=== PATIENT | male | born 1940 | race Caucasian/White ===

== ENCOUNTER 2017-04-08 08:31 | Outpatient (CLI) | payer MEDICARE ==
[~2017-04-08] VITALS: Ht 177.8 cm; Wt 89.5 kg
--- NOTE | ~2017-04-08 | OP ---
PATIENT NAME: KIRILL ANDRESN MEDICAL RECORD: [id number] :44 LOCATION:D.CAT ADMISSION DATE: SURGEON: THERESA CHURCH MD DATE OF OPERATION: 04/08/2017 DATE OF SERVICE: 04/08/2017 PROCEDURES: 1. PTCA stent vein graft to LAD diagonal. 2. Left heart catheterization. 3. Selective coronary angiography. 4. Vein graft angiography. 5. ACUNA angiography. 6. Left ventriculogram. INDICATION: Angina and coronary artery disease. PROCEDURE IN DETAIL: After informed consent was obtained and after detailed explanation of risks, benefits as well as alternative therapies, the patient elected to proceed with angiogram and angioplasty. The right femoral area was prepped and draped in normal sterile fashion. The right femoral artery was cannulated via modified Seldinger technique with placement of 6-Sudanese sheath. All catheters exchanged through this sheath. FINDINGS: Left ventriculogram was performed in standard 30-degree CELIS view, reveals global hypokinesis throughout all segments. Overall ejection fraction estimated 40%. SELECTIVE CORONARY ANGIOGRAPHY: 1. The left main is closed. 2. Right coronary artery is closed. 3. ACUNA to the LAD is widely patent. Distal LAD is widely patent. 4. Vein graft to the LAD diagonal is patent; however, has 99% stenosis proximally. 5. Vein graft in a skipped fashion OM1 and OM2 from the circumflex is widely patent with no significant disease. 6. Vein graft to the right coronary is patent; however, there are multiple areas of 80% stenoses throughout the mid shaft. PTCA STENT OF THE VEIN GRAFT TO THE LAD DIAGONAL: The stent used was a 3.0 x 15 mm Dustin. Result was 0% residual stenosis. OVERALL IMPRESSION: Successful percutaneous transluminal coronary angioplasty stent of the vein graft to the left anterior descending diagonal going from 99% initial stenosis to 0% residual stenosis. TRANSINT:[id number] Voice Confirmation ID: [id number] DOCUMENT ID: [id number] OPERATIVE REPORT [id number] KIRILL ANDRES JEFFREY MD at 1323 CC: [id number] DICTATION DATE: 04/08/17 1034 HORTICULTURAL SPECIALTY [place]OWER FIELD: 04/08/17 1117 DEP CLI 04/08/17 [place] [id number]
--- NOTE | ~2017-04-08 | HP ---
PATIENT: KIRILL ANDRES MEDICAL RECORD: [id number] ACCOUNT: [id number] LOCATION:BEATRIS : 44 ADMISSION DATE: 04/08/17 HISTORY AND PHYSICAL EXAMINATION DIAGNOSES: 1. Angina. 2. Coronary artery disease. 3. Previous percutaneous transluminal coronary angioplasty stent. 4. Diabetes. 5. Hypertension. 6. Atrial fibrillation. HISTORY OF PRESENT ILLNESS: This is a gentleman who presents with anginal symptomatology, has a past history of coronary artery disease, past history of previous cardiac stenting. Nuclear stress test revealed reversible ischemia, he is now sent for cardiac catheterization. REVIEW OF SYSTEMS: The patient reports easy bruising, but reports no swollen glands. The patient reports no fever, no night sweats, no significant weight gain, no significant weight loss. No significant exercise tolerance. The patient reports no dry eyes, no irritation, no vision change. Patient reports no difficulty hearing and no ear pain. Patient reports no frequent nose bleeds or nose and sinus problems. Patient reports on arm pain on exertion. No shortness of breath while lying down. No history of heart murmur. Patient reports no cough, no wheezing or coughing up blood. Patient reports no abdominal pain, no vomiting. Normal appetite. No diarrhea and not vomiting blood. No nausea and no constipation. Patient reports no incontinence. No difficulty urinating. No hematuria. No increased frequency. Patient reports no muscle aches. No weakness, no arthralgias, no back pain. No swelling of the extremities. Patient reports no abnormal mole, no jaundice, no rashes. Reports no loss of consciousness. No weakness and no numbness. No seizures, dizziness, or headaches. The patient reports no depression, no sleep disturbance, feeling safe in a relationship and no alcohol abuse. Patient reports on fatigue. Reports no runny nose or sinus pressure. No itching, no hives, and no frequent sneezing. PHYSICAL EXAMINATION: GENERAL APPEARANCE: Well-nourished, well-developed, appears stated age. Level of distress, comfortable. PSYCHIATRIC: Mental status, alert, normal affect. Orientation, oriented to time, place and person. EYES: Lids and conjunctiva, noninjected. No discharge, no pallor. ENT: Lips, teeth, gums, normal dentition. Oropharynx, no cyanosis, no pallor. NECK: Carotid arteries, bilateral normal upstroke, no bruits, no thrills. JUGULAR VEINS: No jugular venous pressure or distention. CERVICAL LYMPH NODES: Nontender, nonenlarged. THYROID: Not enlarged. Nontender. No nodules. LUNGS: Respiratory effort, unlabored. CHEST: Normal curvature. No thoracic deformity. No chest wall tenderness. Percussion, resonant. Auscultation, clear. No wheezes, no rales, no rhonchi. CARDIOVASCULAR: Precordial exam, nondisplaced. No heaves or pericardial thrills. Rate and rhythm, regular. Heart sounds, normal S1, normal S2. No S3, no gallop, no rub. Systolic murmur, not heard. Diastolic murmur, not heard. EXTREMITIES: No cyanosis, no edema. Peripheral pulses, full and equal in all HISTORY AND PHYSICAL [id number] KIRILL ANDRES extremities, except as noted. No bruits appreciated. ABDOMEN: Soft, nondistended. Normal aorta. No bruit. Nontender. No masses. Liver, nontender, no hepatomegaly. Spleen, nontender, no splenomegaly. MUSCULOSKELETAL: No joint tenderness. No joint swelling. No erythema. NEUROLOGICAL: Normal gait, normal strength, normal tone. SKIN: Warm and dry. OVERALL IMPRESSION: Anginal symptomatology, abnormal nuclear stress test in a patient with a past history of coronary artery disease, most likely has recurrent hemodynamically significant coronary artery disease. We will proceed with coronary angiography. Further care depends upon the findings of the angiography. TRANSINT:[id number] Voice Confirmation ID: [id number] DOCUMENT ID: [id number] THERESA CHURCH MD at 1323 CC: [id number] DICTATION DATE: 04/08/17 0934 SECRETARY OF STATE: 04/08/17 1002 DEP CLI 04/08/[address] [address]
--- NOTE | ~2017-04-08 | HEMODYNAMI ---
PATIENT:KIRILL ANDRES ORIANA MEDICAL RECORD: [id number] : 44 LOCATION:DMY ADMISSION DATE: 04/08/17 Generatedon:04/08/201710:37 Patient name: KIRILL ANDRES Patient #: [id number] SSN: DO B: 1940 Date of study: 04/08/2017 Page: Of Hemodynamic Procedure Report Patient Data Patient Demographics Procedure consent was obtained First Name: KIRILL Gender: Male Last Name: DMITRY : 1940 [facility] Initial: ORIANA Age: 76 year(s) Patient #: [id number] Race: Unknown Additional ID: [id number] Contact details Address: [address] [place] [address] State: [place] City: [place] Zip code: [address] Past Medical History Allergies Allergen Reaction Date Comments Reported Other allergy 04/04/2014 juvencio Other allergy 04/08/2017 Thomas Aguirre Admission Admission Data Admission Date: 04/08/2017 Admission Time: 8:31 Lab Results Lab Result Date: 04/08/2017 Lab Result Time: 0:00 Biochemistry Name Units Result Min Max BUN mg/dl 31 --(----)-* 7 18 Creatinine mg/dl 1.5 --(----)-* 0.6 1.3 CBC Name Units Result Min Max Hemoglobin g/dl 13.8 --(*---)-- 13.5 17.5 Procedure Procedure Types Cath Procedure Diagnostic Procedure LHC LHC w/Coronaries w/Grafts PCI Procedure AMI/SVG/AMMUNITION STORAGE SUPERINTENDENT PTCA or Stent SVG-BMS/AMPARO Initial Miscellaneous Procedures Moderate Sedation up to 30 minutes Procedure Description Procedure Date Procedure Date: 04/08/2017 Procedure Start Time: 10:12 Procedure End Time: 10:32 Procedure Staff Name Function Maria C Bridges RT Monitor Westley Erazo MD Performing Physician Toyin Pitts RT Scrub Nahed Guerrero RN Nurse Procedure Data Cath Procedure Fluoroscopy Diagnostic fluoroscopy Total fluoroscopy Time: 4.5 time: 4.5 min min Diagnostic fluoroscopy Total fluoroscopy dose: 983 dose: 983 mGy mGy Contrast Material Contrast Material Type Amount (ml) Isovue 300 120 Entry Location Entry Primary Successful Side Size Upsize Upsize Entry Closure Succes sful Closure Location (Fr) 1 (Fr) 2 (Fr) Remarks Device Remarks Femoral Right 5 Fr 6 Fr Exoseal artery Short Estimated blood loss: 5 ml Diagnostic catheters Device Type Used For End Catheter Placement MULTIPACK Pigtail 5 Fr LV Angiography catheter MULTIPACK JL 4.0 5Fr Left Coronary catheter Angiography MULTIPACK 3DRC 5Fr Multi-vessel catheter Angiography DIAGNOSTIC AR 2 MOD 5 Fr Multi-vessel catheter ([id number]) Angiography Procedure Complications No complications Procedure Medications Medication Administration Route Dosage 0.9% NaCl I.V. 100 ml/hr Oxygen NC 2 l/min Lidocaine 2% added to field 20 Heparin Flush Bag added to field 2 bags (1000units/500ml NS) Fentanyl I.V. 50 mcg Versed I.V. 1 mg Versed I.V. 0.5 mg Fentanyl I.V. 25 mcg Heparin Bolus I.V. 4000 units Integrilin (Bolus I.V. 7.9 ml 2mg/ml) Plavix P.O. 600 mg Hemodynamics Rest HGB: 13.8 (g/dl) Heart Rate: 69 (bpm) Snapshots Pre Cath Intra NCS Post Cath Vital Signs Time Heart Resp SPO2 NIBP (mmHg) Rhythm Pain Sedation Rate (ipm) (%) Status Level (bpm) 9:55:53 70 14 98 147/83(132) NSR 0 (11) 10(A) , No pain 10:00:11 75 14 98 149/87(124) NSR 0 (11) 10(A) , No pain 10:04:29 80 21 96 143/83(119) NSR 0 (11) 10(A) , No pain 10:08:46 80 17 95 138/86(113) NSR 0 (11) 10(A) , No pain 10:13:01 83 19 96 149/81(121) NSR 0 (11) 9(A) , No pain 10:19:14 75 16 95 159/97(131) NSR 0 (11) 9(A) , No pain 10:23:32 80 16 98 157/82(116) NSR 0 (11) 9(A) , No pain 10:27:46 81 21 98 140/90(114) NSR 0 (11) 9(A) , No pain 10:32:05 79 15 99 155/77(133) NSR 0 (11) 10(A) , No pain Medications Time Medication Route Dose Verified Delivered Reason Notes Effectiveness by by 9:54:52 0.9% NaCl I.V. 100 Westleyrubio Corleyy used for ml/hr Kacey Guerrero RN procedure 9:55:03 Oxygen NC 2 Westley Nahed Per physician l/min Kacey Guerrero RN 9:55:15 Lidocaine 2% added 20ml Westley Westley for local to vial Kacey Erazo MD anesthetic field 9:55:22 Heparin Flush added 2 Westley Westley used for Bag to bags Kacey Erazo MD procedure (1000units/500ml field NS) 10:07:11 Fentanyl I.V. 50 Westley Dockery for sedation mcg Kacey Guerrero RN 10:07:18 Versed I.V. 1 mg Westley Dockery for sedation Kacey Guerrero RN 10:09:17 Versed I.V. 0.5 Westley Bernardfany for sedation mg Kacey Guerrero RN 10:09:25 Fentanyl I.V. 25 Westley Bernardfany for sedation mcg Kacey Guerrero RN 10:21:33 Heparin Bolus I.V. 4000 Westley Dockery for verifi ed units Kacey Guerrero RN anticoagulation by 10:22:49 Integrilin I.V. 7.9 Westley Dockery for verifi ed (Bolus 2mg/ml) ml Kacey Guerrero RN antiplatelet by therapy wasted 2.1Ml 10:23:21 Plavix P.O. 600 Westley Dockery for mg Kacey Guerrero RN antiplatelet therapy Procedure Log Time Note 9:35:24 Maria C Bridges RT(R) sent for patient. Start room use. 9:47:09 Diagnostic Cath Status : Elective 9:47:32 Time tracking: Regular hours 9:47:35 Plan of Care:Hemodynamics will remain stable., Cardiac rhythm will remain stable., Comfort level will be maintained., Respiratory function will remain adequate., Patient/ family verbilizes understanding of procedure., Procedure tolerated without complication., Recovers from procedure without complications.. 9:47:39 Patient received from Pre/Post Procedure Room to CCL 2 Alert and oriented. Tansferred to table in Supine position. 9:47:40 Warm blankets applied, and christine hugger turned on for patient comfort. 9:47:41 Correct patient and procedure confirmed by team. 9:47:42 Signed procedure consent form obtained from patient. 9:47:44 ECG and BP/O2 sat monitors applied to patient. 9:54:37 Vital chart was started 9:54:52 0.9% NaCl 100 ml/hr I.V. was administered by Nahed Guerrero RN; used for procedure; 9:55:03 Oxygen 2 l/min NC was administered by Nahed Guerrero RN; Per physician; 9:55:15 Lidocaine 2% 20ml vial added to field was administered by Westley Erazo MD; for local anesthetic; 9:55:22 Heparin Flush Bag (1000units/500ml NS) 2 bags added to field was administered by Westley Erazo MD; used for procedure; 9:58:10 Baseline sample Acquired. 9:58:46 Rhythm: atrial fibrillation 9:58:48 Full Disclosure recording started 9:58:55 H&P Date Dictated: 04/08/2017 H&P Addendum completed by physician on day of procedure. (MUST COMPLETE FOR ALL OUTPATIENTS), New H&P dictated by physician.. 9:58:56 Pre-op teaching completed and patient verbalized understanding. 9:58:56 Pre-procedure instructions explained to patient. 9:58:58 Family in waiting room. 9:58:59 Patient NPO since Midnight. 9:59:54 Patient allergic to Other allergyJuvencio, Victoza 9:59:56 Is the patient allergic to Iodine/contrast media? No. 9:59:58 Was the patient premedicated? No 10:00:07 Is patient on blood thinner?Yes 10:00:44 Patients last dose of Xarelto was 04/05/17 10:00:48 Patient diabetic? Yes. 10:00:49 If diabetic: On Metformin? Yes 10:01:06 If on Metformin: Last Dose? 04/05/2017 10:01:09 Previous problem with sedation/anesthesia? No ? 10:01:11 Snore? Yes 10:01:12 Sleep apnea? No 10:01:13 Deviated septum? No 10:01:14 Opens mouth fully? Yes 10:01:15 Sticks out tongue? Yes 10:01:16 Airway obstruction? No ? 10:01:19 Dentures? No ? 10:01:22 Pre procedure: right dorsailis pedis pulse 1+ Palpable, but thready & weak; easily obliterated 10:01:24 Pre procedure: left dorsailis pedis pulse 1+ Palpable, but thready & weak; easily obliterated 10:01:26 Patient pain scale 0/10 ?. 10:01:43 IV patent on arrival in left forearm with 0.9% NaCl at [facility]. 10:03:02 Lab Result : Hemoglobin 13.8 g/dl 10:03:02 Lab Result : Creatinine 1.5 mg/dl 10:03:02 Lab Result : BUN 31 mg/dl 10:03:06 Lab results completed and on chart. 10:03:09 Right groin area was prepped with chlora-prep and draped in sterile fashion 10:03:11 Sharps counted by scrub and verified by R.N. 10:03:11 Alarms reviewed by R. N. 10:03:13 --------ALL STOP TIME OUT------ 10:03:13 Physician arrived 10:03:14 Final Timeout: patient, procedure, and site verified with staff and physician. All members of the team are in agreement. 10:03:16 Right groin site verified by team. 10:03:21 Physical assessment completed. ASA score P 2 - A patient with mild systemic disease as per Westley Erazo MD. 10:03:25 Sedation plan: IV Moderate Sedation Medication:Versed, Fentanyl 10:03:30 Use device set Femoral Dx 10:03:31 ACIST Syringe (81033) opened to sterile field. 10:03:32 Medline Cath Pack ([id number]) opened to sterile field. 10:03:32 Bag Decanter (2002) opened to sterile field. 10:03:33 SHEATH 5FR [place] (RLQ891) opened to sterile field. 10:03:34 DIAGNOSTIC WIRE .035 260cm J wire (417580) opened to sterile field. 10:03:35 ACIST Hand Control (43340) opened to sterile field. 10:03:37 ACIST Manifold (32114) opened to sterile field. 10:03:38 DIAGNOSTIC Multipack 5Fr catheter set (VN3824) opened to sterile field. 10:03:39 Tegaderm 4 x 4 (1626W) opened to sterile field. 10:06:06 Zero performed for pressure channel P1 10:06:12 Zero performed for pressure channel P1 10:06:19 Zero performed for pressure channel P1 10:06:26 Zero performed for pressure channel P1 10:07:11 Fentanyl 50 mcg I.V. was administered by Nahed Guerrero RN; for sedation; 10:07:18 Versed 1 mg I.V. was administered by Nahed Guerrero RN; for sedation; 10:09:17 Versed 0.5 mg I.V. was administered by Nahed Guerrero RN; for sedation; 10:09:25 Fentanyl 25 mcg I.V. was administered by Nahed Guerrero RN; for sedation; 10:12:14 Procedure started. 10:12:34 Local anesthetic to right femoral artery with Lidocaine 2% by Westley Erazo MD.INITIAL ACCESS ONLY 10:12:42 A 5 Fr sheath was inserted into the Right Femoral artery 10:12:49 A MULTIPACK Pigtail 5 Fr catheter was advanced over the wire and used for LV Angiography. 10:14:38 LV hemodynamics recorded. 10:14:39 LV gram done using CELIS 10:14:42 Injector settings: Ml/sec: 5, Volume: 15, 10:14:48 EF : 40 % 10:14:51 Catheter removed. 10:14:56 A MULTIPACK JL 4.0 5Fr catheter was advanced over the wire and used for Left Coronary Angiography. 10:15:19 LCA angiography performed. 10:15:21 Injector settings: Ml/sec: 3, Volume: 6, 10:15:58 Catheter removed. 10:16:22 A MULTIPACK 3DRC 5Fr catheter was advanced over the wire and used for Multi-vessel Angiography. 10:16:53 ACUNA angiography performed. 10:18:03 Injector settings: Ml/sec: 3, Volume: 6, 10:18:05 Catheter removed. 10:18:18 A DIAGNOSTIC AR 2 MOD 5 Fr catheter ([id number]) was advanced over the wire and used for Multi-vessel Angiography. 10:18:48 RCA angiography performed. 10:20:00 SVG to Circ angiography performed. 10:20:14 SVG to Diag angiography performed. 10:20:21 SVG to RCA angiography performed. 10:20:34 Catheter removed. 10:20:35 Proceeding to intervention. 10:21:17 INFLATOR Merit BasixCompak (WG7406) opened to sterile field. 10:21:18 SHEATH 6FR [place] (KGW776) opened to sterile field. 10:21:33 Heparin Bolus 4000 units I.V. was administered by Nahed Guerrero RN; for anticoagulation; verified by 10:21:42 GUIDE 6FR AR 2.0 SH catheter ([id number]) opened to sterile field. 10:22:49 Integrilin (Bolus 2mg/ml) 7.9 ml I.V. was administered by Nahed Guerrero RN; for antiplatelet therapy; verified by wasted 2.1Ml 10:23:21 Plavix 600 mg P.O. was administered by Nahed Guerrero RN; for antiplatelet therapy; 10::56 Sheath upsized to a 6 Fr Short. 10:24:01 6 Fr ar 2 sh guide catheter was inserted over the wire 10:24:14 whisper wire advanced. 10:25:01 WHISPER 190cm wire ([id number]) opened to sterile field. 10:25:25 Wire advanced across lesion. 10:26:03 Inflation number: 1 A EUPHORA 3.0 x 20 Balloon ([id number]) was prepped and advanced across the Aorta Left -> 1st Diag, then inflated to 13 LUCERO for 0:10 (min:sec). 10:26:16 Inflation number: 2 The EUPHORA 3.0 x 20 Balloon ([id number]) was reinflated across the Aorta Left -> 1st Diag, to 13 LUCERO for 0:10 (min:sec). 10:26:31 Balloon removed over the wire. 10:28:28 Inflation Number: 3 A JOHNIE RX 3.0 x 15 stent ([id number]) was prepped and advanced across the Aorta Left -> 1st Diag. The stent was deployed at 21 LUCERO for 0:10 (min:sec). 10:28:47 Stent catheter was removed intact over wire. 10::48 Guide catheter removed. 10:28:48 Wire removed. 10:29:28 EXOSEAL 6Fr (EX600) opened to sterile field. 10:29:39 Sheath removed intact; hemostasis achieved with Exoseal to the Right Femoral artery. 10::41 Procedure ended.(Physican Out) ::41 Fluoroscopy time 04.50 minutes. 10:30:46 Fluoroscopy dose: 983 mGy 10:30:46 Flurop Dose total: 983 10:30:50 Contrast amount:Isovue 300 120ml. 10:30:51 Sharps counted by scrub and verified by R.N. 10:30:53 Insertion/operative site no bleeding no hematoma. 10:30:56 Post-op/insertion site Right Femoral artery dressed using a 4 x 4 and Tegaderm. 10:30:58 Post right femoral artery:stable 10:31:00 Post Procedure Pulses reassessed and unchanged 10:31:16 Post procedure rhythm: unchanged. 10:31:18 Estimated blood loss: 5 ml 10:31:21 Patient needs reinforcement of post procedure teaching. 10:31:21 Post procedure instruction explained to patient.Patient verbalizes understanding. 10::46 Procedure and supply charges have been captured, reviewed, submitted and are correct. 10:31:46 Procedure type changed to Cath procedure, Diagnostic procedure, LHC, LHC w/Coronaries w/Grafts, PCI procedure, AMI/SVG/AMMUNITION STORAGE SUPERINTENDENT PTCA or Stent, SVG-BMS/AMPARO Initial, Miscellaneous Procedures, Moderate Sedation up to 30 minutes 10:31:50 Procedure Complication : No complications 10:31:52 Vital chart was stopped 10:31:54 See physician's report for complete and final results. 10:32:14 Report given to Pre/Post Procedure Room. 10:32:16 Patient transfered to Pre/Post Procedure Room with Stretcher. 10:32:18 Full Disclosure recording stopped 10:32:18 Procedure ended. 10:32:26 ACC-PCI Only Patient was given prescriptions, or instructed by Westley Erazo MD to start/continue the following medications upon discharge: Plavix 10:32:28 End room use (Document Last) Intervention Summary Intervention Notes Time ActionType Lesion and Equipment Used Action# Pressure Duration Attributes 10:26:03 Inflate Aorta Left EUPHORA 3.0 x 1 13 00:10 balloon -> 1st Diag 20 Balloon ([id number]) 10:26:16 Reinflate Aorta Left EUPHORA 3.0 x 2 13 00:10 balloon -> 1st Diag 20 Balloon ([id number]) 10:28:28 Place stent Aorta Left JOHNIE RX 3.0 x 3 21 00:10 -> 1st Diag 15 stent ([id number]) Device Usage Item Name Manufacture Quantity Catalog Hospital Part [facility] Lot# / Number Charge Number Stock Stock Serial# Code ACIST Syringe Acist 1 18411 006836 604573 [id number] 20 (54169) Medical Systems Inc Bag Decanter Microtek 1 2001S 429227 10124 341382 5 () Medical Inc. Medline Cath Cardinal 1 [id number] 924570 85243 820993 5 Pack Health ([id number]) SHEATH 5FR Terumo 1 MFS736 539071 767654 136762 40 [place] (YJM844) DIAGNOSTIC [facility] 1 670755 311504 882234 864541 30 WIRE .035 260cm J wire (901233) ACIST Hand Acist 1 69865 201385 972840 003922 5 Control Medical (51877) Systems Inc ACIST Manifold Acist 1 76584 438571 557106 931817 5 (56658) Medical Systems Inc DIAGNOSTIC Cardinal 1 PL5250 295204 62336 146216 30 Multipack 5Fr Health catheter set (NF4229) Tegaderm 4 x 4 3M 1 1626W 433647 949799 428104 5 (1626W) MULTIPACK Cardinal 1 979044 5 Pigtail 5 Fr Health catheter MULTIPACK JL Cardinal 1 107699 5 4.0 5Fr Health catheter MULTIPACK 3DRC Cardinal 1 488446 5 5Fr catheter Health DIAGNOSTIC AR Cardinal 1 [id number] 704207 149661 905654 20 2 MOD 5 Fr Health catheter ([id number]) INFLATOR Merit Merit 1 UO8422 779844 219715 908498 15 Lancope ([id number]) SHEATH 6FR Terumo 1 CRM147 942903 807554 650026 40 [place] (RTD214) GUIDE 6FR AR Medtronic 1 [id number] 824895 47296 099911 1 2.0 SH catheter ([id number]) WHISPER 190cm Mitchell 1 [id number] 073488 488684 793282 5 wire Vascular ([id number]) EUPHORA 3.0 x Medtronic 1 [id number] 930204 538387 455894 5 [id number] 20 Balloon ([id number]) JOHNIE RX 3.0 x Medtronic 1 [id number] 969962 1184665 205768 5 [id number] 15 stent ([id number]) EXOSEAL 6Fr Cardinal 1 EX600 315959 383051 032282 10 (EX600) Health Signature Audit [place] Stage Time Signature Unsigned Intra-Procedure 04/08/2017 Maria C Bridges 10:36:59 AM RT(R) Signatures Monitor : Maria C Bridges RT Signature : Date : Time : [place] [address] [place] [address]
[~2017-04-08 08:31] MED LIST: BAYER CHEWABLE81 MG PO; BYSTOLIC10 MG PO; CINNAMON500 MG PO; ELIQUIS5 MG PO; FERROUS SULFAT140 MG PO; GLUCOPHAGE1000 MG PO; LEVEMIR100 U/M1 SC; LIPITOR80 MG PO; PLAVIX75 MG PO; PRILOSEC20 MG PO; SORINE80 MG PO; TRIBENZOR 40-11 EAC1 PO; VICTOZA0.6 MG/0.1 SQ
[2017-04-08] MEDS ORDERED: XARELTO20 MG PO (08:51)
[2017-04-08] MEDS ORDERED: INVOKANA300 MG PO (08:52)
[2017-04-08] MEDS ORDERED: ALEVE220 MG PO (08:53)
[2017-04-08] MEDS ORDERED: NORVASC5 MG PO (08:54)
[2017-04-08] MEDS ORDERED: BYDUREON P2 MG/0.65 SC (08:55)
[2017-04-08 08:58] VITALS: BP 172/97; Ht 177.8 cm; Wt 89.5 kg
[2017-04-08 09:13] LABS: BASOPHILS 0.4 % (0-2); EOSINOPHILS 4.1 % (0-7); HEMATOCRIT 41.9 % (42.0-54.0); HEMOGLOBIN 13.8 g/dL (13.5-17.5); IMMATURE GRANULOCYTES 0.2 % (0-5); LYMPHOCYTES 16.8 % (15-50); MCH 31.5 pg (26.0-34.0); MCHC 32.9 g/dL (31.0-37.0); MCV 95.7 fL (80.0-100.0); MEAN PLATELET VOLUME 9.4 fL (7.4-10.4); MONOCYTES 8.2 % (2-11); NEUTROPHILS 70.3 % (40-80); PLATELET COUNT 225 10x3/uL (130-400); RBC 4.38 10x6/uL (4.20-6.10); RDW 15.5 % (11.5-14.5); WBC 8.5 10x3/uL (4.8-10.8)
[2017-04-08 09:32] LABS: ANION GAP 15.9 mmol/L (8-16); CALCIUM 9.3 mg/dL (8.5-10.1); CARBON DIOXIDE 23.2 mmol/L (21.0-32.0); CREATININE - SERUM 1.5 mg/dL (0.6-1.3); POTASSIUM - SERUM 4.1 mmol/L (3.5-5.1)
[2017-04-08] MEDS ORDERED: PLAVIX75 MG PO (10:46)
== END 2017-04-08 14:45 | disposition home or self-care (01) ==
LOC: D.CATH 08:31
PROVIDERS: Internal Medicine Interventional Cardiology
DX: I25.119 Atherosclerotic heart disease of native coronary artery with unspecified angina pectoris (principal); R06.09 Other forms of dyspnea; I49.5 Sick sinus syndrome; Z95.0 Presence of cardiac pacemaker; I48.91 Unspecified atrial fibrillation; Z01.812 Encounter for preprocedural laboratory examination
CPT/HCPCS: 93459; C9604

== ENCOUNTER 2017-04-11 08:28 | Outpatient (CLI) | payer MEDICARE ==
[~2017-04-11] VITALS: Ht 177.8 cm; Wt 89.5 kg
--- NOTE | ~2017-04-11 | HEMODYNAMI ---
PATIENT:KIRILL ANDRES ORIANA MEDICAL RECORD: [id number] : 44 LOCATION:[facility] ADMISSION DATE: 04/11/17 Generatedon:04/11/201711:08 Patient name: KIRILL ANDRES Patient #: [id number] SSN: DO B: 1940 Date of study: 04/11/2017 Page: Of Hemodynamic Procedure Report Patient Data Patient Demographics Procedure consent was obtained First Name: KIRILL Gender: Male Last Name: DMITRY : 1940 [facility] Initial: ORIANA Age: 76 year(s) Patient #: [id number] Race: Unknown Additional ID: [id number] Contact details [address]: [address] [place] [address] State: [place] City: [place] Zip code: [address] Past Medical History Allergies Allergen Reaction Date Comments Reported Other allergy 04/04/2014 juvencio Other allergy 04/08/2017 Thomas Aguirre Other allergy 04/11/2017 juvencio Admission Admission Data Admission Date: 04/11/2017 Admission Time: 8:28 Lab Results Lab Result Date: 04/11/2017 Lab Result Time: 0:00 Biochemistry Name Units Result Min Max BUN mg/dl 32 --(----)-* 7 18 Creatinine mg/dl 1.3 --(---*)-- 0.6 1.3 CBC Name Units Result Min Max Hemoglobin g/dl 14 --(*---)-- 13.5 17.5 Procedure Procedure Types Cath Procedure PCI Procedure AMI/SVG/BALANCE WHEEL SCREW HOLE DRILLER PTCA or Stent SVG-BMS/AMPARO Initial Miscellaneous Procedures Moderate Sedation up to 30 minutes Procedure Description Procedure Date Procedure Date: 04/11/2017 Procedure Start Time: 10:53 Procedure End Time: 11:04 Procedure Staff Name Function Westley Erazo MD Performing Physician Maria C Bridges RT Monitor Toyin Pitts RT Scrub Nahed Guerrero RN Nurse Procedure Data Cath Procedure Fluoroscopy Diagnostic fluoroscopy Total fluoroscopy Time: 2.3 time: 2.3 min min Diagnostic fluoroscopy Total fluoroscopy dose: 559 dose: 559 mGy mGy Contrast Material Contrast Material Type Amount (ml) Isovue 300 41 Entry Location Entry Primary Successful Side Size Upsize Upsize Entry Closure Succes sful Closure Location (Fr) 1 (Fr) 2 (Fr) Remarks Device Remarks Femoral Right 6 Fr Exoseal artery Short Estimated blood loss: 5 ml Procedure Complications No complications Procedure Medications Medication Administration Route Dosage 0.9% NaCl I.V. 100 ml/hr Oxygen NC 2 l/min Lidocaine 2% added to field 20 Heparin Flush Bag added to field 2 bags (1000units/500ml NS) Heparin Bolus I.V. 4000 units Versed I.V. 1 mg Fentanyl I.V. 50 mcg Cardene I.C. 300 mcg Fentanyl I.V. 50 mcg Versed I.V. 1 mg Hemodynamics Rest HGB: 14 (g/dl) Heart Rate: 85 (bpm) Snapshots Pre Cath Intra NCS Post Cath Vital Signs Time Heart Resp SPO2 etCO2 NIBP (mmHg) Rhythm Pain Sedation Rate (ipm) (%) (mmHg) Status Level (bpm) 10:39:26 77 16 96 0 156/93(132) NSR 0 (11) 10(A) , No pain 10:43:42 86 17 96 27 145/88(119) NSR 0 (11) 10(A) , No pain 10:47:52 76 18 95 30 143/100(116) NSR 0 (11) 10(A) , No pain 10:52:06 79 18 97 11.2 142/82(128) NSR 0 (11) 9(A) , No pain 10:56:16 91 16 96 0 151/92(131) NSR 0 (11) 9(A) , No pain 11:00:32 82 15 96 28.5 140/77(108) NSR 0 (11) 9(A) , No pain 11:04:41 83 14 97 13.5 140/90(116) NSR 0 (11) 10(A) , No pain Medications Time Medication Route Dose Verified Delivered Reason Not es Effectiveness by by 10:38:34 0.9% NaCl I.V. 100ml/hr Westley Dockery used for Kacey Guerrero remote mortgage underwriter 10:38:44 Oxygen NC 2 l/min Westley Dockery Per physician Kacey Guerrero RN 10:39:05 Lidocaine 2% added 20ml Westley Christy for local to vial Kacey Erazo MD anesthetic field 10:39:11 Heparin Flush added 2 bags Westley Christy used for Bag to Kacye Erazo MD procedure (1000units/500ml field NS) 10:48:35 Fentanyl I.V. 50 mcg Westley Christy for sedation Kacey Erazo MD 10:48:39 Versed I.V. 1 mg Westley Christy for sedation Kacey Erazo MD 10:54:52 Heparin Bolus I.V. 4000 Westley Dockery for sung ified units Kacey Guerrero RN anticoagulation by 10:55:00 Versed I.V. 1 mg Westley Dockery for sedation Kacey Guerrero RN 10:55:09 Fentanyl I.V. 50 mcg Westley Dockery for sedation Kacey Guerrero RN 10:58:06 Cardene I.C. 300mcg Westley Christy Per physician Kacey Erazo MD Procedure Log Time Note 10:20:33 Toyin Pitts RT(R) sent for patient. Start room use. 10:33:40 Time tracking: Regular hours 10:33:44 Plan of Care:Hemodynamics will remain stable., Cardiac rhythm will remain stable., Comfort level will be maintained., Respiratory function will remain adequate., Patient/ family verbilizes understanding of procedure., Procedure tolerated without complication., Recovers from procedure without complications.. 10:33:49 Patient received from Pre/Post Procedure Room to CCL 2 Alert and oriented. Tansferred to table in Supine position. 10:33:50 Warm blankets applied, and christine hugger turned on for patient comfort. 10:33:50 Correct patient and procedure confirmed by team. 10:33:52 Signed procedure consent form obtained from patient. 10:38:22 Vital chart was started 10:38:34 0.9% NaCl 100ml/hr I.V. was administered by Nahed Guerrero RN; used for procedure; 10:38:44 Oxygen 2 l/min NC was administered by Nahed Guerrero RN; Per physician; 10:39:05 Lidocaine 2% 20ml vial added to field was administered by Westley Erazo MD; for local anesthetic; 10:39:11 Heparin Flush Bag (1000units/500ml NS) 2 bags added to field was administered by Westley Erazo MD; used for procedure; 10:41:16 Baseline sample Acquired. 10:41:18 ECG and BP/O2 sat monitors applied to patient. 10:41:20 Baseline sample Acquired. 10:41:26 Rhythm: sinus rhythm 10:42:36 Full Disclosure recording started 10:44:32 H&P Date Dictated: 04/11/2017 Within 30 days and on chart., H&P Addendum completed by physician on day of procedure. (MUST COMPLETE FOR ALL OUTPATIENTS). 10:44:34 Pre-procedure instructions explained to patient. 10:44:34 Pre-op teaching completed and patient verbalized understanding. 10:44:36 Family in patients room. 10:44:38 Patient NPO since Midnight. 10:44:57 Patient allergic to Other allergybyetta 10:45:00 Is the patient allergic to Iodine/contrast media? No. 10:45:01 Was the patient premedicated? No 10:45:04 Is patient on blood thinner?Yes 10:45:07 ACC The patient was administered the following blood thiners within the last 24 hours: ACCPlavix 10:45:09 Patient diabetic? Yes. 10:45:10 If diabetic: On Metformin? Yes 10:45:22 If on Metformin: Last Dose? 04/07/2017 10:45:26 Previous problem with sedation/anesthesia? No ? 10:45:28 Snore? Yes 10:45:29 Sleep apnea? No 10:45:30 Deviated septum? No 10:45:31 Opens mouth fully? Yes 10:45:32 Sticks out tongue? Yes 10:45:34 Airway obstruction? No ? 10:45:41 Dentures? No ? 10:45:44 Pre procedure: right dorsailis pedis pulse 1+ Palpable, but thready & weak; easily obliterated 10:45:46 Pre procedure: left dorsailis pedis pulse 1+ Palpable, but thready & weak; easily obliterated 10:45:48 Patient pain scale 0/10 ?. 10:45:54 IV patent on arrival in left hand with 0.9% NaCl at [facility]. 10:46:19 Lab Result : BUN 32 mg/dl 10:46:19 Lab Result : Creatinine 1.3 mg/dl 10:46:19 Lab Result : Hemoglobin 14 g/dl 10:46:22 Lab results completed and on chart. 10:46:27 Right groin area was prepped with chlora-prep and draped in sterile fashion 10:46:28 Alarms reviewed by R. N. 10:46:28 Sharps counted by scrub and verified by R.N. 10:47:46 Physician arrived 10:47:47 --------ALL STOP TIME OUT------ 10:47:47 Final Timeout: patient, procedure, and site verified with staff and physician. All members of the team are in agreement. 10:47:49 Right groin site verified by team. 10:47:52 Physical assessment completed. ASA score P 2 - A patient with mild systemic disease as per Westley Erazo MD. 10:47:56 Sedation plan: IV Moderate Sedation Medication:Versed, Fentanyl 10:48:06 Use device set TAUTH PCI 10:48:07 INFLATOR Merit BasixCompak ([id number]) opened to sterile field. 10:48:09 SHEATH 6FR [place] (DPM673) opened to sterile field. 10:48:13 EXOSEAL 6Fr (EX600) opened to sterile field. 10:48:16 Use device set Acist 10:48:18 ACIST Syringe (36657) opened to sterile field. 10:48:18 ACIST Hand Control (70540) opened to sterile field. 10:48:19 ACIST Manifold (42643) opened to sterile field. 10:48:26 Use device set CATH PACK 10:48:30 Bag Decanter (2002S) opened to sterile field. 10:48:31 DIAGNOSTIC WIRE .035 260cm J wire (499455) opened to sterile field. 10:48:32 Medline Cath Pack ([id number]) opened to sterile field. 10:48:35 Fentanyl 50 mcg I.V. was administered by Westley Erazo MD; for sedation; 10:48:39 Versed 1 mg I.V. was administered by Westley Erazo MD; for sedation; 10:50:09 Zero performed for pressure channel P1 10:53:09 Procedure started. 10:53:12 Local anesthetic to right femoral artery with Lidocaine 2% by Westley Erazo MD.INITIAL ACCESS ONLY 10:53:26 A 6 Fr Short sheath was inserted into the Right Femoral artery 10:53:48 CHOICE PT Extra Support 182cm wire ([id number]) opened to sterile field. 10:53:55 GUIDE 6FR AR 2.0 catheter ([id number]) opened to sterile field. 10:54:08 6 Fr ar 2 guide catheter was inserted over the wire 10:54:52 Heparin Bolus 4000 units I.V. was administered by Nahed Guerrero RN; for anticoagulation; verified by 10:55:00 Versed 1 mg I.V. was administered by Nahed Guerrero RN; for sedation; 10:55:09 Fentanyl 50 mcg I.V. was administered by Nahed Guerrero RN; for sedation; 10:57:18 SVG to RCA angiography performed. 10:57:54 choice pt wire advanced. 10:58:06 Cardene 300mcg I.C. was administered by Westley Erazo MD; Per physician; 10:59:02 Wire advanced across lesion. 10:59:10 Inflation number: 1 A EUPHORA 4.0 x 30 Balloon ([id number]) was prepped and advanced across the Aorta Right -> Mid RCA, then inflated to 17 LUCERO for 0:10 (min:sec). 10:59:37 Balloon removed over the wire. 11:01:01 Inflation Number: 2 A JOHNIE RX 4.0 x 18 stent ([id number]) was prepped and advanced across the Aorta Right -> Mid RCA. The stent was deployed at 13 LUCERO for 0:10 (min:sec). 11:02:18 Stent catheter was removed intact over wire. 11:02:19 Wire removed. 11:02:19 Guide catheter removed. 11:02:52 Sheath removed intact; hemostasis achieved with Exoseal to the Right Femoral artery. 11:03:10 Procedure ended.(Physican Out) 11:03:38 Fluoroscopy time 02.30 minutes. 11:03:41 Flurop Dose total: 559 11:03:41 Fluoroscopy dose: 559 mGy 11:03:45 Contrast amount:Isovue 300 41ml. 11:03:46 Sharps counted by scrub and verified by R.N. 11:03:49 Insertion/operative site no bleeding no hematoma. 11:03:51 Post-op/insertion site Right Femoral artery dressed using a 4 x 4 and Tegaderm. 11:03:54 Post right femoral artery:stable 11:03:57 Post Procedure Pulses reassessed and unchanged 11:04:04 Post procedure rhythm: unchanged. 11:04:07 Estimated blood loss: 5 ml 11:04:08 Post procedure instruction explained to patient.Patient verbalizes understanding. 11:04:09 Patient needs reinforcement of post procedure teaching. 11:04:37 Procedure type changed to Cath procedure, PCI procedure, AMI/SVG/BALANCE WHEEL SCREW HOLE DRILLER PTCA or Stent, SVG-BMS/AMPARO Initial, Miscellaneous Procedures, Moderate Sedation up to 30 minutes 11:04:38 Procedure and supply charges have been captured, reviewed, submitted and are correct. 11:04:44 Procedure Complication : No complications 11:04:45 Vital chart was stopped 11:04:47 See physician's report for complete and final results. 11:04:50 Report given to Pre/Post Procedure Room. 11:04:53 Patient transfered to Pre/Post Procedure Room with Stretcher. 11:04:55 Procedure ended. 11:04:55 Full Disclosure recording stopped 11:05:02 ACC-PCI Only Patient was given prescriptions, or instructed by Westley Erazo MD to start/continue the following medications upon discharge: Plavix 11:05:03 End room use (Document Last) Intervention Summary Intervention Notes Time ActionType Lesion and Equipment Used Action# Pressure Duration Attributes 10:59:10 Inflate Aorta Right EUPHORA 4.0 x 1 17 00:10 balloon -> Mid RCA 30 Balloon ([id number]) 11:01:01 Place stent Aorta Right JOHNIE RX 4.0 x 2 13 00:10 -> Mid RCA 18 stent ([id number]) Device Usage Item Name Manufacture Quantity Catalog Number Hospital Part Current M inimal Lot# / Charge Number Stock Stock Serial# Code INFLATOR Merit Merit 1 [id number] 386246 263618 1 5 AppFirst ([id number]) SHEATH 6FR Terumo 1 [id number] 857384 048139 041422 4 0 [place] ([id number]) EXOSEAL 6Fr Cardinal 1 EX600 756345 531801 938255 1 0 (EX600) Health ACIST Syringe Acist 1 42907 653634 992251 038146 2 0 (42742) Medical Systems Inc ACIST Hand Acist 1 90156 693196 444301 235927 5 Control Medical (68344) Systems Inc ACIST Manifold Acist 1 29899 758087 015392 533590 5 (97243) Medical Systems Inc Bag Decanter Microtek 1 2002S 855793 23537 173944 5 (2001S) Medical Inc. DIAGNOSTIC [facility] 1 983808 480248 735846 019286 3 0 WIRE .035 260cm J wire (796112) Medline Cath Cardinal 1 [id number] 127865 26945 732957 5 [facility] ([id number]) CHOICE PT [place] 1 [id number] 683193 209946 169645 5 Extra Support Scientific 182cm wire ([id number]) GUIDE 6FR AR Medtronic 1 [id number] 136271 20999 115372 1 2.0 catheter (WM2PE67) EUPHORA 4.0 x Medtronic 1 [id number] 627428 375389 927703 5 [id number] 30 Balloon ([id number]) JOHNIE RX 4.0 x Medtronic 1 [id number] 011367 7724498 131320 5 [id number] 18 stent ([id number]) Signature Audit Garvin Stage Time Signature Unsigned Intra-Procedure 04/11/2017 Maria C Bridges 11:07:59 AM RT(R) Signatures Monitor : Maria C Bridges RT Signature : Date : Time : [place] [id number] [place] [address]
--- NOTE | ~2017-04-11 | HP ---
PATIENT: KIRILL CASTANON MEDICAL RECORD: [id number] ACCOUNT: [id number] LOCATION:[facility] : 44 ADMISSION DATE: 04/11/17 HISTORY AND PHYSICAL EXAMINATION ADMITTING DIAGNOSES: 1. Angina. 2. Coronary artery disease. 3. Status post coronary artery bypass graft surgery. 4. Status post PTCA stent recently, vein graft to the LAD diagonal with concomitant disease of vein graft to the RCA. 5. Hypertension. 6. Hyperlipidemia. HISTORY OF PRESENT ILLNESS: Mr. Castanon presents with anginal symptomatology, found to have significant disease of the vein graft to the LAD diagonal as well as vein graft to the RCA, underwent successful PTCA stent of the vein graft to the LAD diagonal. He is now brought back for PTCA stent of the vein graft to the RCA. PHYSICAL EXAMINATION: GENERAL APPEARANCE: Well-nourished, well-developed, appears stated age. Level of distress, comfortable. PSYCHIATRIC: Mental status, alert, normal affect. Orientation, oriented to time, place and person. EYES: Lids and conjunctiva, noninjected. No discharge, no pallor. ENT: Lips, teeth, gums, normal dentition. Oropharynx, no cyanosis, no pallor. NECK: Carotid arteries, bilateral normal upstroke, no bruits, no thrills. JUGULAR VEINS: No jugular venous pressure or distention. CERVICAL LYMPH NODES: Nontender, nonenlarged. THYROID: Not enlarged. Nontender. No nodules. LUNGS: Respiratory effort, unlabored. CHEST: Normal curvature. No thoracic deformity. No chest wall tenderness. Percussion, resonant. Auscultation, clear. No wheezes, no rales, no rhonchi. CARDIOVASCULAR: Precordial exam, nondisplaced. No heaves or pericardial thrills. Rate and rhythm, regular. Heart sounds, normal S1, normal S2. No S3, no gallop, no rub. Systolic murmur, not heard. Diastolic murmur, not heard. EXTREMITIES: No cyanosis, no edema. Peripheral pulses, full and equal in all extremities, except as noted. No bruits appreciated. ABDOMEN: Soft, nondistended. Normal aorta. No bruit. Nontender. No masses. Liver, nontender, no hepatomegaly. Spleen, nontender, no splenomegaly. MUSCULOSKELETAL: No joint tenderness. No joint swelling. No erythema. NEUROLOGICAL: Normal gait, normal strength, normal tone. SKIN: Warm and dry. REVIEW OF SYSTEMS: The patient reports easy bruising but reports no swollen glands. The patient reports no fever, no night sweats, no significant weight gain, no significant weight loss. No significant exercise tolerance. The patient reports no dry eyes, no irritation, no vision change. Patient reports no difficulty hearing and no ear pain. Patient reports no frequent nose bleeds or nose and sinus problems. Patient reports on arm pain on exertion. No shortness of breath while lying down. No history of heart murmur. Patient reports no cough, no wheezing or coughing up blood. Patient reports no abdominal pain, no vomiting. Normal appetite. No diarrhea and not vomiting blood. No nausea and no constipation. Patient reports no incontinence. No HISTORY AND PHYSICAL [id number] [place]ARTHINGKIRILL difficulty urinating. No hematuria. No increased frequency. Patient reports no muscle aches. No weakness, no arthralgias, no back pain. No swelling of the extremities. Patient reports no abnormal mole, no jaundice, no rashes. Reports no loss of consciousness. No weakness and no numbness. No seizures, dizziness, or headaches. The patient reports no depression, no sleep disturbance, feeling safe in a relationship and no alcohol abuse. Patient reports on fatigue. Reports no runny nose or sinus pressure. No itching, no hives, and no frequent sneezing. OVERALL IMPRESSION: Anginal symptomatology with significant disease of the vein graft to the RCA. We will proceed with transcatheter revascularization of the vein graft to the RCA. TRANSINT:[id number] Voice Confirmation ID: [id number] DOCUMENT ID: [id number] THERESA CHURCH MD at 1324 CC: [id number] DICTATION DATE: 04/11/17 0955 PUTTER IN: 04/11/17 1018 DEP CLI 04/11/17 [place] [id number] [place] [id number]
--- NOTE | ~2017-04-11 | OP ---
PATIENT NAME: KIRILL ANDRES MEDICAL RECORD: [id number] :44 LOCATION:D.CAT ADMISSION DATE: SURGEON: THERESA CHURCH MD DATE OF OPERATION: 04/11/2017 PROCEDURES: 1. PTCA stent vein graft to RCA. 2. Selective coronary and vein graft angiography. INDICATION: Angina and coronary artery disease. PROCEDURE IN DETAIL: After informed consent was obtained and after a detailed explanation of risks, benefits as well as alternative therapies, the patient elected to proceed with angiogram and angioplasty. The right femoral area was prepped and draped in normal sterile fashion. Right femoral artery was cannulated via modified Seldinger technique with placement of 6-Polish sheath. All catheters exchanged through this sheath. FINDINGS: The vein graft to the right coronary artery has 2 areas of greater than 80% stenosis, one was addressed with the fluoroscopy 12 [place] stent, the other with a 4.0 balloon as it was an in-stent restenosis. Result was 0% residual stenosis with pentecostalism of brisk distal flow. IMPRESSION: Successful PTCA stent of the vein graft to the right coronary artery going from 80+ percent initial stenosis to 0% residual. TRANSINT:[id number] Voice Confirmation ID: [id number] DOCUMENT ID: [id number] THERESA CHURCH MD at 1324 CC: [id number] DICTATION DATE: 04/11/17 1106 IOS DEVELOPER: 04/11/17 1309 DEP CLI 04/11/17 [place] [id number]
[~2017-04-11 08:28] MED LIST changes: +ALEVE220 MG PO; +BYDUREON P2 MG/0.65 SC; +INVOKANA300 MG PO; +NORVASC5 MG PO; +XARELTO20 MG PO
[2017-04-11 09:03] VITALS: BP 174/96; Ht 177.8 cm; Wt 89.5 kg
[2017-04-11 09:29] LABS: BASOPHILS 0.1 % (0-2); EOSINOPHILS 3.4 % (0-7); HEMATOCRIT 41.9 % (42.0-54.0); IMMATURE GRANULOCYTES 0.3 % (0-5); LYMPHOCYTES 14.3 % (15-50); MCH 31.7 pg (26.0-34.0); MCHC 33.4 g/dL (31.0-37.0); MEAN PLATELET VOLUME 9.7 fL (7.4-10.4); MONOCYTES 7.6 % (2-11); NEUTROPHILS 74.3 % (40-80); PLATELET COUNT 215 10x3/uL (130-400); RBC 4.41 10x6/uL (4.20-6.10); RDW 15.5 % (11.5-14.5); WBC 8.9 10x3/uL (4.8-10.8)
[2017-04-11 09:45] LABS: ANION GAP 15.3 mmol/L (8-16); CALCIUM 9.5 mg/dL (8.5-10.1); CARBON DIOXIDE 22.9 mmol/L (21.0-32.0); CREATININE - SERUM 1.3 mg/dL (0.6-1.3); POTASSIUM - SERUM 4.2 mmol/L (3.5-5.1)
== END 2017-04-11 15:00 | disposition home or self-care (01) ==
LOC: D.CATH 08:28
PROVIDERS: Internal Medicine Interventional Cardiology
DX: I25.119 Atherosclerotic heart disease of native coronary artery with unspecified angina pectoris (principal); I25.719 Atherosclerosis of autologous vein coronary artery bypass graft(s) with unspecified angina pectoris; T82.855A Stenosis of coronary artery stent, initial encounter; Z95.5 Presence of coronary angioplasty implant and graft; I10 Essential (primary) hypertension; E78.5 Hyperlipidemia, unspecified; Z01.812 Encounter for preprocedural laboratory examination

== ENCOUNTER 2018-01-23 08:57 | Outpatient (CLI) | payer MEDICARE ==
[~2018-01-23] VITALS: Ht 177.8 cm; Wt 91.8 kg
--- NOTE | ~2018-01-23 | OP ---
PATIENT NAME: KIRILL ANDRES MEDICAL RECORD: [id number] :42 LOCATION:D.CAT ADMISSION DATE: SURGEON: THERESA CHURCH MD DATE OF OPERATION: 01/23/2018 PROCEDURES: 1. PTCA stent vein graft to LAD diagonal. 2. PTCA stent vein graft to left circumflex. 3. Left heart catheterization. 4. Selective coronary angiography. 5. Vein graft angiography. 6. ACUNA angiography. 7. Intravascular ultrasound. 8. Left ventriculogram. INDICATION: Unstable angina and coronary artery disease. PROCEDURE IN DETAIL: After informed consent was obtained and after a detailed description of risks, benefits as well as alternative therapies, the patient elected to proceed with angiogram and angioplasty. The right femoral area was prepped and draped in normal sterile fashion. The right femoral artery was cannulated via modified Seldinger technique with placement of 6-Slovak sheath. All catheters exchanged through this sheath. FINDINGS: Left ventriculogram was performed in standard 30-degree CELIS view, reveals global hypokinesis throughout all segments. Overall ejection fraction in the 30% to 35% range. SELECTIVE CORONARY ANGIOGRAPHY: 1. Left main is with no significant angiographic disease. 2. Left anterior descending is totally occluded. 3. Left circumflex is totally occluded. 4. Right coronary artery is 99% stenosed. This then leads into a PDA that is nongrafted. 5. Vein graft to the RCA is present. This is grafted to the distal RCA, which is extremely small and virtually no flow. The zuni RCA is bigger than what the graft goes to. There are previously placed stents in the grafts that are patent. 6. There is a vein graft to the circumflex that is present. It has a 70% stenosis in the mid shaft confirmed by intravascular ultrasound. 7. There is a ACUNA to the LAD that is present. The distal LAD is diffusely diseased. 8. There is a vein graft to the LAD diagonal and has a previously placed stent at the ostium. This is widely patent; however, there is a new 80% stenosis in the mid shaft. PTCA STENT OF THE VEIN GRAFT TO THE LAD DIAGONAL: The stent used was a 3.0 x 15 mm [place]. Result was 0% residual stenosis. PTCA STENT OF THE VEIN GRAFT TO THE CIRCUMFLEX: The stent used was a 4.0 x 12 mm [place]. Result was 0% residual stenosis. OVERALL IMPRESSION: Successful percutaneous transluminal coronary angioplasty stent of the vein graft to the diagonal and a vein graft to the left circumflex, both going from 70% to 80% initial stenosis to 0% residual. OPERATIVE REPORT [id number] KIRILL ANDRES PLAN: PTCA stent of the RCA in the near future. TRANSINT:[id number] Voice Confirmation ID: [id number] DOCUMENT ID: [id number] THERESA CHURCH MD at 1914 CC: [id number] DICTATION DATE: 01/23/18 1334 COKE DRAWER HAND: 01/23/18 1342 DEP CLI 01/23/18 [facility] [address] [place] [address]
--- NOTE | ~2018-01-23 | HEMODYNAMI ---
PATIENT:KIRILL ANDRES ORIANA MEDICAL RECORD: [id number] : 44 LOCATION:[facility] ADMISSION DATE: 01/23/18 Generatedon:01/23/201813:36 Patient name: KIRILL ANDRES Patient #: [id number] SSN: DO B: 1940 Date of study: 01/23/2018 Page: Of Hemodynamic Procedure Report Patient Data Patient Demographics Procedure consent was obtained First Name: KIRILL Gender: Male Last Name: DMITRY : 1940 [facility] Initial: ORIANA Age: 77 year(s) Patient #: [id number] Race: Unknown Additional ID: [id number] Contact details [address]: [address] [place] [address] State: [place] City: [place] Zip code: [address] Past Medical History Allergies Allergen Reaction Date Comments Reported Other allergy 04/04/2014 juvencio Other allergy 04/08/2017 Zena Alfaro Other allergy 04/11/2017 juvencio Other allergy 01/23/2018 ZENA ALFARO Admission Admission Data Admission Date: 01/23/2018 Admission Time: 8:57 Height (in.): 70 BSA: 2.16 (m2) Height (cm.): 177.8 BMI: 30.99 (kg/m2) Weight (lbs.): 216 Weight (kg.): 97.98 Procedure Procedure Types Cath Procedure Diagnostic Procedure C [facility] w/Coronaries w/Grafts FFR/IVUS Intra-Coronary IVUS Initial Sedation Charges Moderate Sedation up to 15 minutes PCI Procedure AMI/SVG/SHREDDER TENDER PEAT PTCA or Stent SVG-BMS/AMPARO Initial SVG-BMS/AMPARO Additional Procedure Description Procedure Date Procedure Date: 01/23/2018 Procedure Start Time: 13:00 Procedure End Time: 13:36 Procedure Staff Name Function Westley Erazo MD Performing Physician Susie Ennis RT Monitor Brannon Palma RT Scrub Erica Singer RN Nurse Britton Rojas RN Police And Fire Dispatcher Procedure Data Cath Procedure Fluoroscopy Diagnostic fluoroscopy Total fluoroscopy Time: 6.1 time: 6.1 min min Diagnostic fluoroscopy Total fluoroscopy dose: dose: 1663 mGy 1663 mGy Contrast Material Contrast Material Type Amount (ml) Isovue 300 142 Entry Location Entry Primary Successful Side Size Upsize Upsize Entry Closure Succes sful Closure Location (Fr) 1 (Fr) 2 (Fr) Remarks Device Remarks Femoral Right 5 Fr 6 Fr Exoseal artery Short Estimated blood loss: 10 ml Diagnostic catheters Device Type Used For End Catheter Placement MULTIPACK Pigtail 5 Fr Procedure catheter MULTIPACK JL 4.0 5Fr Procedure catheter MULTIPACK 3DRC 5Fr Procedure catheter DIAGNOSTIC AR2 MOD 5 Fr Procedure catheter ([id number]) Procedure Complications No complications Procedure Medications Medication Administration Route Dosage 0.9% NaCl I.V. 100 ml/hr Oxygen etCO2 Nasal cannula 2 l/min Lidocaine 2% added to field 20 Heparin Flush Bag added to field 2 bags (1000units/500ml NS) Versed I.V. 2 mg Fentanyl I.V. 50 mcg Heparin Bolus I.V. 4000 units Integrilin (Bolus I.V. 8.5 ml 2mg/ml) Plavix P.O. 600 mg Versed I.V. 1 mg Fentanyl I.V. 25 mcg Hemodynamics Rest BSA: 2.16 (m2) O2 Consumption: Estimated: 251.75 (ml/min) O2 Consumption indexed : Estimated:116.55 (ml/min/m) Heart Rate: 74 (bpm) Snapshots Pre Cath Intra NCS Post Cath Vital Signs Time Heart Resp SPO2 etCO2 NIBP (mmHg) Rhythm Pain Sedation Rate (ipm) (%) (mmHg) Status Level (bpm) 12:42:15 80 13 95 26.9 175/103(153) NSR 0 (11) 10(A) , No pain 12:46:50 73 20 96 22.4 159/91(144) NSR 0 (11) 10(A) , No pain 12:51:12 73 23 97 25 151/95(137) NSR 0 (11) 10(A) , No pain 12:55:34 77 22 96 17.9 169/94(125) NSR 0 (11) 10(A) , No pain 13:00:00 77 23 96 13.4 157/91(114) NSR 0 (11) 9(A) , No pain 13:04:29 74 18 96 18.6 153/80(128) NSR 0 (11) 9(A) , No pain 13:08:53 82 26 97 20 150/91(125) NSR 0 (11) 9(A) , No pain 13:13:21 76 20 98 22 145/72(132) NSR 0 (11) 9(A) , No pain 13:17:39 81 24 96 26.8 155/100(110) NSR 0 (11) 10(A) , No pain 13:22:01 87 25 98 23 155/83(133) NSR 0 (11) 10(A) , No pain 13:26:28 69 20 97 18.6 155/87(124) NSR 0 (11) 10(A) , No pain 13:30:50 75 22 94 12.6 158/79(133) NSR 0 (11) 10(A) , No pain 13:35:14 76 22 94 8.2 152/88(126) NSR 0 (11) 10(A) , No pain Medications Time Medication Route Dose Verified Delivered Reason Notes Effectiveness by by 12:41:05 0.9% NaCl I.V. 100 Westley Erica used for ml/hr Kacey Singer landscaper helper 12:41:12 Oxygen etCO2 2 Westley Erica used for Nasal l/min Kacey Singer procedure cannula RN 12:41:17 Lidocaine 2% added 20ml Westley Westley for local to vial Kacey Erazo MD anesthetic field 12:41:22 Heparin Flush added 2 Westley Westley used for Bag to bags Kacey Erazo MD procedure (1000units/500ml field NS) 12:56:26 Versed I.V. 2 mg Westley Erica for sedation Kacey Singer RN 12:56:36 Fentanyl I.V. 50 Westley Erica for sedation mcg Kacey Singer RN 13:14:04 Heparin Bolus I.V. 4000 Westley Erica for verif ied units Kacey Singer anticoagulation with Dr. MACARENA Astorga 13:15:24 Integrilin I.V. 8.5 Westley Erica for waste d (Bolus 2mg/ml) ml Kacey Singer anticoagulation 1.5mL RN 13:15:46 Plavix P.O. 600 Westley Mladonado for mg Kacey Singer antiplatelet RN therapy 13:20:48 Versed I.V. 1 mg Westley Maldonado for sedation Kacey Singer RN 13:21:00 Fentanyl I.V. 25 Westley Maldonado for sedation mcg Kacey Singer RN Procedure Log Time Note 12:30:17 Britton Rojas RN sent for patient. Start room use. 12:36:23 Time tracking: Regular hours (M-F 7:00 - 5:00) 12:36:26 Plan of Care:Hemodynamics will remain stable., Cardiac rhythm will remain stable., Comfort level will be maintained., Respiratory function will remain adequate., Patient/ family verbilizes understanding of procedure., Procedure tolerated without complication., Recovers from procedure without complications.. 12:36:31 Patient received from Pre/Post Procedure Room to CCL 1 Alert and oriented. Tansferred to table in Supine position. 12:36:32 Warm blankets applied, and christine hugger turned on for patient comfort. 12:36:33 Correct patient and procedure confirmed by team. 12:36:34 Signed procedure consent form obtained from patient. 12:36:35 ECG and BP/O2 sat monitors applied to patient. 12:40:49 Vital chart was started 12:41:05 0.9% NaCl 100 ml/hr I.V. was administered by Erica Singer RN; used for procedure; 12:41:12 Oxygen 2 l/min etCO2 Nasal cannula was administered by Erica Singer RN; used for procedure; 12:41:17 Lidocaine 2% 20ml vial added to field was administered by Westley Erazo MD; for local anesthetic; 12:41:22 Heparin Flush Bag (1000units/500ml NS) 2 bags added to field was administered by Westley Erazo MD; used for procedure; 12:44:33 Baseline sample Acquired. 12:44:43 Rhythm: sinus rhythm 12:44:45 Full Disclosure recording started 12:44:57 H&P Date Dictated: 01/20/2018 Within 30 days and on chart., H&P Addendum completed by physician on day of procedure. (MUST COMPLETE FOR ALL OUTPATIENTS). 12:44:58 Pre-procedure instructions explained to patient. 12:44:58 Pre-op teaching completed and patient verbalized understanding. 12:45:00 Family in patients room. 12:45:02 Patient NPO since Midnight. 12:45:19 Patient allergic to Other allergyZENA ALFARO 12:45:22 Is the patient allergic to Iodine/contrast media? No. 12:45:23 Is patient on blood thinner?Yes 12:45:49 XARELTO HELD 20 DAYS (COLONOSCOPY TWO WEEKS AGO) 12:45:53 Patient diabetic? No. 12:45:58 Previous problem with sedation/anesthesia? No ? 12:46:00 Snore? Yes 12:46:03 Sleep apnea? No 12:46:04 Deviated septum? No 12:46:05 Opens mouth fully? Yes 12:46:06 Sticks out tongue? Yes 12:46:07 Airway obstruction? No ? 12:46:08 Dentures? No ? 12:46:12 Pre procedure: right dorsailis pedis pulse 2+ Normal; easily identifiable; not easily obliterated 12:46:17 Patient pain scale 0/10 ?. 12:46:35 IV patent on arrival in left hand with 0.9% NaCl at [facility] 12:46:40 Lab results completed and on chart. 12:46:43 Right Radial & Right Groin area was prepped with chlora-prep and draped in sterile fashion 12:46:44 Alarms reviewed by R. N. 12:46:44 Sharps counted by scrub and verified by R.N. 12:46:51 Use device set Femoral Dx 12:46:52 ACIST Syringe (86529) opened to sterile field. 12:47:08 Bag Decanter (2002) opened to sterile field. 12:47:09 ACIST Hand Control (96134) opened to sterile field. 12:47:10 ACIST Manifold (42607) opened to sterile field. 12:47:11 Tegaderm 4 x 4 (1626W) opened to sterile field. 12:47:11 Medline Cath Pack ([id number]) opened to sterile field. 12:47:12 DIAGNOSTIC WIRE .035 260cm J wire (313452) opened to sterile field. 12:47:13 DIAGNOSTIC Multipack 5Fr catheter set (AP5137) opened to sterile field. 12:47:15 SHEATH Prelude 5Fr 0.035 (EPA-5A-75-035) opened to sterile field. 12:48:13 Patient Height : 70 inches 12:48:17 Patient Weight : 216 lbs 12:55:34 --------ALL STOP TIME OUT------ 12:55:34 Final Timeout: patient, procedure, and site verified with staff and physician. All members of the team are in agreement. 12:55:36 Right groin site verified by team. 12:55:40 Physical assessment completed. ASA score P 2 - A patient with mild systemic disease as per Westley Erazo MD. 12:55:43 Sedation plan: IV Moderate Sedation Medication:Versed, Fentanyl 12:56:26 Versed 2 mg I.V. was administered by Erica Singre RN; for sedation; 12:56:36 Fentanyl 50 mcg I.V. was administered by Erica Singer RN; for sedation; 13:00:08 Procedure started. 13:00:12 Local anesthetic to right femoral artery with Lidocaine 2% by Westley Erazo MD.INITIAL ACCESS ONLY 13:03:33 AMPLATZ Super stiff 180cm wire ([id number]) opened to sterile field. 13:03:41 A 5 Fr sheath was inserted into the Right Femoral artery 13:05:03 A MULTIPACK Pigtail 5 Fr catheter was advanced over the wire and used for Procedure. 13:05:07 LV gram done using CELIS 13:05:10 Injector settings: Ml/sec: 10, Volume: 20, 13:05:23 EF : 30 % 13:05:37 Catheter exchanged over wire. 13:06:38 A MULTIPACK JL 4.0 5Fr catheter was advanced over the wire and used for Procedure. 13:06:41 LCA angiography performed. 13:06:44 Catheter exchanged over wire. 13:06:52 A MULTIPACK 3DRC 5Fr catheter was advanced over the wire and used for Procedure. 13:07:44 ACUNA to LAD angiography performed. 13:08:03 RCA angiography performed. 13:09:00 ACUNA to Diag angiography performed. 13:09:13 Catheter exchanged over wire. 13:09:39 A DIAGNOSTIC AR2 MOD 5 Fr catheter ([id number]) was advanced over the wire and used for Procedure. 13:10:22 ACUNA to Circ angiography performed. 13:11:17 ACUNA to RCA angiography performed. 13:12:32 Catheter exchanged over wire. 13:12:39 SHEATH 6FR [place] (RQI378) opened to sterile field. 13:12:46 INFLATOR Merit BasixCompak (SK3983) opened to sterile field. 13:12:46 CHOICE PT Extra Support 182cm wire ([id number]) opened to sterile field. 13:14:04 Heparin Bolus 4000 units I.V. was administered by Erica Singer RN; for anticoagulation; verified with Dr. Erazo 13:14:10 GUIDE 6FR AR 2.0 catheter ([id number]) opened to sterile field. 13:14:20 Sheath upsized to a 6 Fr Short. 13:14:52 6 Fr AR 2 guide catheter was inserted over the wire 13:14:59 [place] IVUS Catheter (31818Z) opened to sterile field. 13:15:03 CHOICE ES 182 wire advanced. 13:15:24 Integrilin (Bolus 2mg/ml) 8.5 ml I.V. was administered by Erica Singer RN; for anticoagulation; wasted 1.5mL 13:15:46 Plavix 600 mg P.O. was administered by Erica Singer RN; for antiplatelet therapy; 13:17:29 IVUS catheter advanced over wire. 13:17:36 IVUS pass to Circ lesion performed. 13:17:37 IVUS catheter removed over wire. 13:20:48 Versed 1 mg I.V. was administered by Erica Singer RN; for sedation; 13:21:00 Fentanyl 25 mcg I.V. was administered by Erica Singer RN; for sedation; 13:21:41 Place stent Inflation Number: 1 A JOHNIE RX 4.0 x 12 stent ([id number]) was prepped and advanced across the Aorta Left -> Mid CX. The stent was deployed at 17 LUCERO for 0:10 (min:sec). 13:22:13 WIRE AND GUIDE REMOVED. REDIRECTED TO THE SVG TO THE DIAG 13:23:43 Place stent Inflation Number: 1 A JOHNIE RX 3.0 x 15 stent ([id number]) was prepped and advanced across the Aorta Left -> 1st Diag. The stent was deployed at 13 LUCERO for 0:10 (min:sec). 13:24:15 Stent catheter was removed intact over wire. 13:24:15 Wire removed. 13:24:16 Guide catheter removed. 13:24:26 EXOSEAL 6Fr (EX600) opened to sterile field. 13:25:28 Sheath removed intact; hemostasis achieved with Exoseal to the Right Femoral artery. 13:25:30 Procedure ended.(Physican Out) 13:31:05 Fluoroscopy time 06.10 minutes. 13:31:08 Flurop Dose total: 1663 13:31:08 Fluoroscopy dose: 1663 mGy 13:31:18 Contrast amount:Isovue 300 142ml. 13:31:21 Post-op/insertion site Right Femoral artery dressed using a 4 x 4 and Tegaderm. 13:31:26 Post right femoral artery:stable, soft, clean and dry 13:31:30 Post-procedure physical assessment completed. ASA score P 2 - A patient with mild systemic disease as per Westley Erazo MD. 13:31:35 Post procedure rhythm: unchanged. 13:31:37 Estimated blood loss: 10 ml 13:31:39 Post procedure instruction explained to patient.Patient verbalizes understanding. 13:31:39 Patient needs reinforcement of post procedure teaching. 13:32:27 Procedure type changed to Cath procedure, Diagnostic procedure, LHC, LHC w/Coronaries w/Grafts, FFR/IVUS, Intra-Coronary IVUS Initial, Sedation Charges, Moderate Sedation up to 15 minutes, PCI procedure, AMI/SVG/SHREDDER TENDER PEAT PTCA or Stent, SVG-BMS/AMPARO Initial, SVG-BMS/AMPARO Additional 13:36:04 Procedure and supply charges have been captured, reviewed, submitted and are correct. 13:36:07 Procedure Complication : No complications 13:36:09 Vital chart was stopped 13:36:09 See physician's report for complete and final results. 13:36:11 Report given to Pre/Post Procedure Room. 13:36:13 Patient transfered to Pre/Post Procedure Room with Bed. 13:36:15 Procedure ended. 13:36:15 Full Disclosure recording stopped 13:36:18 End room use (Document Last) Intervention Summary Intervention Notes Time ActionType Lesion and Equipment Used Action# Pressure Duration Attributes 13:21:41 Place stent Aorta Left JOHNIE RX 4.0 x 1 17 00:10 -> Mid CX 12 stent ([id number]) 13:23:43 Place stent Aorta Left JOHNIE RX 3.0 x 1 13 00:10 -> 1st Diag 15 stent ([id number]) Device Usage Item Name Manufacture Quantity Catalog Number Hospital Part Current Minimal Lot# / Charge Number Stock Stock Serial# Code ACIST Syringe Acist 1 02444 051950 544793 094509 20 (14779) Medical Systems Inc Bag Decanter Microtek 1 2001S 501685 73578 110727 5 (2001S) Medical Inc. ACIST Hand Acist 1 43594 415121 608791 395633 5 Control (39937) Medical Systems Inc ACIST Manifold Acist 1 75757 135870 280274 511356 5 (01518) Medical Systems Inc Tegaderm 4 x 4 3M 1 1626W 031194 675886 834797 5 (1626W) Medline Cath Medline 1 [id number] 121423 69007 210063 5 Pack ([id number]) DIAGNOSTIC WIRE [facility] [place] 1 691490 749224 654123 384640 30 .035 260cm J wire (621707) DIAGNOSTIC Cardinal 1 CX9632 374851 21101 616672 30 Multipack 5Fr Health catheter set (AU0794) SHEATH Prelude Merit 1 KVI-7A-65-035 680680 110855 740375 5 5Fr 0.035 Medical (TPG-4R-27-035) AMPLATZ Super [place] 1 [id number] 396842 937582 147070 5 stiff 180cm Scientific wire ([id number]) MULTIPACK Cardinal 1 620946 5 Pigtail 5 Fr Health catheter MULTIPACK JL Cardinal 1 717936 5 4.0 5Fr Health catheter MULTIPACK 3DRC Cardinal 1 661957 5 5Fr catheter Health DIAGNOSTIC AR2 Cardinal 1 192082E 529204 798863 703272 20 MOD 5 Fr Health catheter (354742M) SHEATH 6FR Terumo 1 FEM913 281924 425659 788960 40 [place] (ZYY551) INFLATOR Merit Merit 1 JI4328 524758 336567 661460 15 Impactia Medical (PR9941) CHOICE PT Extra [place] 1 [id number] 319162 385717 680922 5 Support 182cm Scientific wire ([id number]) GUIDE 6FR AR Medtronic 1 [id number] 859304 22425 952914 1 2.0 catheter (RL6AI02) Alvord Alvord 1 14562N 397425 518876 614172 8 [place] IVUS Catheter (34920P) JOHNIE RX 4.0 x Medtronic 1 [id number] 380928 7127927 663935 5 [id number] 12 stent ([id number]) JOHNIE RX 3.0 x Medtronic 1 [id number] 443025 5623400 161913 5 [id number] 15 stent ([id number]) EXOSEAL 6Fr Cardinal 1 EX600 955560 406510 589119 10 (EX600) Health Signature Audit [place] Stage Time Signature Unsigned Intra-Procedure 01/23/2018 Susie Ennis 1:36:45 PM RT(R) Signatures Monitor : Susie Ennis Signature : RT Date : Time : [address] [place] [address]
[2018-01-23] MEDS ORDERED: LANTUS SC (09:14)
[2018-01-23] MEDS ORDERED: ZYRTEC10 MG PO (09:15)
[2018-01-23 09:22] VITALS: BP 178/86; Ht 177.8 cm; Wt 91.8 kg
[2018-01-23 09:50] LABS: CALCIUM 8.1 mg/dL (8.5-10.1); CARBON DIOXIDE 26.1 mmol/L (21.0-32.0); CREATININE - SERUM 1.5 mg/dL (0.6-1.3)
[2018-01-23 09:52] LABS: POTASSIUM - SERUM 4.1 mmol/L (3.5-5.1)
[2018-01-23 10:12] LABS: HEMATOCRIT 33.3 % (42.0-54.0); HEMOGLOBIN 11.4 g/dL (13.5-17.5); LYMPHOCYTES 19.9 % (15-50); MCH 31.5 pg (26.0-34.0); MCHC 34.2 g/dL (31.0-37.0); MEAN PLATELET VOLUME 9.3 fL (7.4-10.4); NEUTROPHILS 69.4 % (40-80); PLATELET COUNT 253 10x3/uL (130-400); RBC 3.62 10x6/uL (4.20-6.10); RDW 16.3 % (11.5-14.5); WBC 6.5 10x3/uL (4.8-10.8)
[2018-01-23] MEDS ORDERED: PLAVIX75 MG PO (13:39)
== END 2018-01-23 17:35 | disposition home or self-care (01) ==
LOC: D.CATH 08:57
PROVIDERS: Internal Medicine Interventional Cardiology
DX: I25.110 Atherosclerotic heart disease of native coronary artery with unstable angina pectoris (principal); R06.02 Shortness of breath
CPT/HCPCS: C9604; C9605; 92978; 93459

== ENCOUNTER → 2018-01-27 07:38 | Outpatient (CLI) | payer MEDICARE ==
[~2018-01-27] VITALS: Ht 177.8 cm; Wt 91.8 kg
--- NOTE | ~2018-01-27 | HP ---
PATIENT: KIRILL CASTANON MEDICAL RECORD: [id number] ACCOUNT: [id number] LOCATION:[facility] : 44 ADMISSION DATE: 01/27/18 PCP: CHERISE ARTHUR MD HISTORY AND PHYSICAL EXAMINATION DIAGNOSES: 1. Angina. 2. Coronary artery disease. 3. Status post coronary bypass graft surgery. 4. Status post PTCA stent. 5. Hypertension. 6. Hyperlipidemia. HISTORY OF PRESENT ILLNESS: Mr. Castanon presents with anginal symptomatology, found to have significant disease of the vein graft to the LAD, vein graft to the circumflex as well as the stockbridge RCA. He underwent successful PTCA stent of the vein graft to the LAD and circumflex, now brought back for PTCA stent of the vein graft to the RCA. PHYSICAL EXAMINATION: GENERAL APPEARANCE: Well-nourished, well-developed, appears stated age. Level of distress, comfortable. PSYCHIATRIC: Mental status, alert, normal affect. Orientation, oriented to time, place and person. EYES: Lids and conjunctiva, noninjected. No discharge, no pallor. ENT: Lips, teeth, gums, normal dentition. Oropharynx, no cyanosis, no pallor. NECK: Carotid arteries, bilateral normal upstroke, no bruits, no thrills. JUGULAR VEINS: No jugular venous pressure or distention. CERVICAL LYMPH NODES: Nontender, nonenlarged. THYROID: Not enlarged. Nontender. No nodules. LUNGS: Respiratory effort, unlabored. CHEST: Normal curvature. No thoracic deformity. No chest wall tenderness. Percussion, resonant. Auscultation, clear. No wheezes, no rales, no rhonchi. CARDIOVASCULAR: Precordial exam, nondisplaced. No heaves or pericardial thrills. Rate and rhythm, regular. Heart sounds, normal S1, normal S2. No S3, no gallop, no rub. Systolic murmur, not heard. Diastolic murmur, not heard. EXTREMITIES: No cyanosis, no edema. Peripheral pulses, full and equal in all extremities, except as noted. No bruits appreciated. ABDOMEN: Soft, nondistended. Normal aorta. No bruit. Nontender. No masses. Liver, nontender, no hepatomegaly. Spleen, nontender, no splenomegaly. MUSCULOSKELETAL: No joint tenderness. No joint swelling. No erythema. NEUROLOGICAL: Normal gait, normal strength, normal tone. SKIN: Warm and dry. OVERALL IMPRESSION: Anginal symptomatology with significant disease of the RCA. We will proceed with PTCA stent of the RCA. TRANSINT:[id number] Voice Confirmation ID: [id number] DOCUMENT ID: [id number] HISTORY AND PHYSICAL [id number] KIRILL CASTANON JEFFREY MD at 1235 CC: [id number] DICTATION DATE: 01/27/18 1016 BILL POSTER INSTALLER: 01/27/18 1031 [facility] [address] [place] [address]
--- NOTE | ~2018-01-27 | OP ---
PATIENT NAME: KIRILL ANDRES MEDICAL RECORD: [id number] :44 LOCATION:D.CAT ADMISSION DATE: SURGEON: THERESA CHURCH MD DATE OF OPERATION: 01/27/2018 PROCEDURES: 1. PTCA stent RCA. 2. Selective coronary angiography. INDICATION: Angina and coronary artery disease. PROCEDURE IN DETAIL: After informed consent was obtained and after a detailed description of risks, benefits as well as alternative therapies, the patient elected to proceed with angiogram and angioplasty. The right femoral area was prepped and draped in normal sterile fashion. Right femoral artery was cannulated via modified Seldinger technique with placement of 6-Luxembourgish sheath. All catheters exchanged through the sheath. FINDINGS: The right coronary artery leads into a non-grafted PDA. It is extremely heavily calcified and 90+ percent stenosis proximally. This was addressed with a 2.5 balloon and 2.5 x 18 and 2.5 x 8 Dustin stent. OVERALL IMPRESSION: Successful percutaneous transluminal coronary angioplasty stent of the right coronary artery going from 90% initial stenosis to 10% residual stenosis. TRANSINT:[id number] Voice Confirmation ID: [id number] DOCUMENT ID: [id number] THERESA CHURCH MD at 1235 CC: [id number] DICTATION DATE: 01/27/18 1059 HEBREW CANTOR: 01/27/18 [address] [place] [address]
--- NOTE | ~2018-01-27 | HEMODYNAMI ---
PATIENT:KIRILL ANDRSE ORIANA MEDICAL RECORD: [id number] : 44 LOCATION:[facility] ADMISSION DATE: 01/27/18 Generatedon:01/27/201811:02 Patient name: KIRILL ANDRES Patient #: [id number] SSN: DO B: 1940 Date of study: 01/27/2018 Page: Of Hemodynamic Procedure Report Patient Data Patient Demographics Procedure consent was obtained First Name: KIRILL Gender: Male Last Name: DMITRY : 1940 [facility] Initial: ORIANA Age: 77 year(s) Patient #: [id number] Race: Unknown Additional ID: [id number] Contact details [address]: [address] [place] [address] State: [place] City: [place] Zip code: [address] Past Medical History Allergies Allergen Reaction Date Comments Reported Other allergy 04/04/2014 juvencio Other allergy 04/08/2017 Zena Alfaro Other allergy 04/11/2017 juvencio Other allergy 01/23/2018 ZENA ALFARO Other allergy 01/27/2018 ZENA ALFARO Admission Admission Data Admission Date: 01/27/2018 Admission Time: 7:38 Admit Source: Other Lab Results Lab Result Date: 01/27/2018 Lab Result Time: 0:00 Biochemistry Name Units Result Min Max BUN mg/dl 33 --(----)-* 7 18 Creatinine mg/dl 1.6 --(----)-* 0.6 1.3 CBC Name Units Result Min Max Hemoglobin g/dl 12.2 *-(----)-- 13.5 17.5 Procedure Procedure Types Cath Procedure PCI Procedure Coronary Stent Coronary Stent Initial Procedure Description Procedure Date Procedure Date: 01/27/2018 Procedure Start Time: 10:44 Procedure End Time: 11:01 Procedure Staff Name Function Westley Erazo MD Performing Physician Susie Ennis RT Monitor Brannon Palma RT Scrub Erica Singer RN Nurse Procedure Data Cath Procedure Fluoroscopy Diagnostic fluoroscopy Total fluoroscopy Time: 6.5 time: 6.5 min min Diagnostic fluoroscopy Total fluoroscopy dose: 608 dose: 608 mGy mGy Contrast Material Contrast Material Type Amount (ml) Isovue 300 78 Entry Location Entry Primary Successful Side Size Upsize Upsize Entry Closure Succes sful Closure Location (Fr) 1 (Fr) 2 (Fr) Remarks Device Remarks Femoral Right 6 Fr Exoseal artery Short Estimated blood loss: 10 ml Procedure Complications No complications Procedure Medications Medication Administration Route Dosage 0.9% NaCl I.V. 100 ml/hr Oxygen etCO2 Nasal cannula 2 l/min Lidocaine 2% added to field 20 Heparin Flush Bag added to field 2 bags (1000units/500ml NS) Fentanyl I.V. 50 mcg Versed I.V. 2 mg Heparin Bolus I.V. 4000 units Versed I.V. 1 mg Hemodynamics Rest HGB: 12.2 (g/dl) Heart Rate: 64 (bpm) Snapshots Pre Cath Intra NCS Post Cath Vital Signs Time Heart Resp SPO2 etCO2 NIBP (mmHg) Rhythm Pain Sedation Rate (ipm) (%) (mmHg) Status Level (bpm) 10:27:07 72 19 98 27 179/95(154) NSR 0 (11) 10(A) , No pain 10:31:33 83 16 98 27 175/102(132) NSR 0 (11) 10(A) , No pain 10:36:00 71 19 98 27 167/106(144) NSR 0 (11) 10(A) , No pain 10:40:22 73 18 97 26.2 159/96(140) NSR 0 (11) 10(A) , No pain 10:44:42 75 17 98 27.7 167/94(143) NSR 0 (11) 10(A) , No pain 10:49:06 68 17 97 27.7 155/91(120) NSR 0 (11) 9(A) , No pain 10:53:20 68 16 97 24.7 151/94(125) NSR 0 (11) 9(A) , No pain 10:57:38 70 22 98 26.2 154/86(137) NSR 0 (11) 10(A) , No pain 11:01:56 71 17 98 15 154/87(129) NSR 0 (11) 10(A) , No pain Medications Time Medication Route Dose Verified Delivered Reason Notes Effectiveness by by 10:26:11 0.9% NaCl I.V. 100 Westley Erica used for ml/hr Kacey Singer slide fasteners inspector 10:26:24 Oxygen etCO2 2 Westley Erica used for Nasal l/min Kacey Singer procedure cannula RN 10:26:30 Lidocaine 2% added 20ml Westley Westley for local to vial Kacey Erazo MD anesthetic field 10:26:35 Heparin Flush added 2 Westley Westley used for Bag to bags Kacey Erazo MD procedure (1000units/500ml field NS) 10:42:09 Fentanyl I.V. 50 Westley Erica for sedation mcg Kacey Singer RN 10:42:16 Versed I.V. 2 mg Westley Erica for sedation Kacey Singer RN 10:45:40 Heparin Bolus I.V. 4000 Westley Erica for units Kacey Singer anticoagulation RN 10:47:23 Versed I.V. 1 mg Westley Erica for sedation Kacey Singer supervisor garment manufacturing Log Time Note 10:11:07 Admit Source: Other 10:11:21 Diagnostic Cath status Elective 10:11:25 Time tracking: Regular hours (M-F 7:00 - 5:00) 10:11:29 Plan of Care:Hemodynamics will remain stable., Cardiac rhythm will remain stable., Comfort level will be maintained., Respiratory function will remain adequate., Patient/ family verbilizes understanding of procedure., Procedure tolerated without complication., Recovers from procedure without complications.. 10:12:00 H&P Date Dictated: 01/27/2018 Within 30 days and on chart.. 10:12:01 Pre-procedure instructions explained to patient. 10:12:02 Pre-op teaching completed and patient verbalized understanding. 10:12:03 Family in waiting room. 10:12:04 Patient NPO since Midnight. 10:13:28 Signed procedure consent form obtained from patient. 10:13:36 Susie Ennis RT(R) sent for patient. Start room use. 10:19:18 Patient received from Pre/Post Procedure Room to CCL 1 Alert and oriented. Tansferred to table in Supine position. 10:19:20 Warm blankets applied, and christine hugger turned on for patient comfort. 10:19:20 Correct patient and procedure confirmed by team. 10:19:21 ECG and BP/O2 sat monitors applied to patient. 10:25:54 Vital chart was started 10:26:11 0.9% NaCl 100 ml/hr I.V. was administered by Erica Singer RN; used for procedure; 10:26:24 Oxygen 2 l/min etCO2 Nasal cannula was administered by Erica Singer RN; used for procedure; 10::30 Lidocaine 2% 20ml vial added to field was administered by Westley Erazo MD; for local anesthetic; 10:26:35 Heparin Flush Bag (1000units/500ml NS) 2 bags added to field was administered by Westley Erazo MD; used for procedure; 10:27:40 Baseline sample Acquired. 10:32:59 Rhythm: sinus rhythm 10:33:00 Full Disclosure recording started 10:33:14 Patient allergic to Other allergyBYETTA, VICTOZA 10:33:16 Is the patient allergic to Iodine/contrast media? No. 10:33:17 Is patient on blood thinner?Yes 10:33:20 ACC The patient was administered the following blood thiners within the last 24 hours: ACCPlavix 10:33:33 XARELTO HELD..PT NOT SURE LAST DAY 10:33:35 Patient diabetic? Yes. 10:33:36 If diabetic: On Metformin? Yes 10:33:46 If on Metformin: Last Dose? 01/21/2018 10:33:49 Previous problem with sedation/anesthesia? No ? 10:33:50 Snore? Yes 10:33:51 Sleep apnea? No 10:33:52 Deviated septum? No 10:33:53 Opens mouth fully? Yes 10:33:54 Sticks out tongue? Yes 10:33:55 Airway obstruction? No ? 10:33:56 Dentures? No ? 10:33:59 Pre procedure: right dorsailis pedis pulse 2+ Normal; easily identifiable; not easily obliterated 10:34:01 Patient pain scale 0/10 ?. 10:34:05 IV patent on arrival in left hand with 0.9% NaCl at O. 10:34:08 Lab results completed and on chart. 10:34:10 Right groin area was prepped with chlora-prep and draped in sterile fashion 10:34:11 Alarms reviewed by R. N. 10:34:14 Sharps counted by scrub and verified by R.N. 10:34:17 Use device set CATH PACK 10:34:18 ACIST Syringe (11793) opened to sterile field. 10:34:19 ACIST Hand Control (46232) opened to sterile field. 10:34:19 ACIST Manifold (63146) opened to sterile field. 10:34:20 Medline Cath Pack ([id number]) opened to sterile field. 10:34:20 Bag Decanter (2002S) opened to sterile field. 10:34:20 DIAGNOSTIC WIRE .035 260cm J wire (574695) opened to sterile field. 10:34:37 INFLATOR Merit BasixCompak (JB2324) opened to sterile field. 10:34:38 SHEATH 6FR Seco (YDP512) opened to sterile field. 10:34:38 CHOICE PT Extra Support 182cm wire ([id number]) opened to sterile field. 10:35:01 Lab Result : BUN 33 mg/dl 10:35:01 Lab Result : Creatinine 1.6 mg/dl 10:35:01 Lab Result : Hemoglobin 12.2 g/dl 10:38:40 --------ALL STOP TIME OUT------ 10:38:40 Final Timeout: patient, procedure, and site verified with staff and physician. All members of the team are in agreement. 10:38:42 Right groin site verified by team. 10:38:44 Physical assessment completed. ASA score P 2 - A patient with mild systemic disease as per Westley Erazo MD. 10:38:48 Sedation plan: IV Moderate Sedation Medication:Versed, Fentanyl 10:40:54 Zero performed for pressure channel P1 10:42:09 Fentanyl 50 mcg I.V. was administered by Erica Singer RN; for sedation; 10:42:16 Versed 2 mg I.V. was administered by Erica Singer RN; for sedation; 10:43:57 GUIDE 6FR AR 2.0 SH catheter ([id number]) opened to sterile field. 10:44:01 Procedure started. 10:44:03 Local anesthetic to right femoral artery with Lidocaine 2% by Westley Erazo MD.INITIAL ACCESS ONLY 10:44:52 A 6 Fr Short sheath was inserted into the Right Femoral artery 10:45:09 6 Fr AR 2 SH guide catheter was inserted over the wire 10:45:40 Heparin Bolus 4000 units I.V. was administered by Erica Singer RN; for anticoagulation; 10:46:24 CHOICE ES 182 wire advanced. 10:47:00 WIRE ADVANCED [place] RCA 10:47:23 Versed 1 mg I.V. was administered by Erica Singer RN; for sedation; 10:48:08 Inflate balloon Inflation number: 1 A EUPHORA 2.5 x 15 Balloon ([id number]) was prepped and advanced across the Prox RCA, then inflated to 13 LUCERO for 0:10 (min:sec). 10:49:08 Inflation number: 2 The EUPHORA 2.5 x 15 Balloon ([id number]) was reinflated across the Prox RCA, to 13 LUCERO for 0:10 (min:sec). 10:49:23 Inflation number: 3 The EUPHORA 2.5 x 15 Balloon ([id number]) was reinflated across the Prox RCA, to 17 LUCERO for 0:10 (min:sec). 10:50:18 Inflation number: 4 The EUPHORA 2.5 x 15 Balloon ([id number]) was reinflated across the Prox RCA, to 19 LUCERO for 0:10 (min:sec). 10:50:40 Inflation number: 5 The EUPHORA 2.5 x 15 Balloon ([id number]) was reinflated across the Prox RCA, to 21 LUCERO for 0:10 (min:sec). 10:50:50 Balloon removed over the wire. 10:52:18 Place stent Inflation Number: 6 A JOHNIE RX 2.5 x 18 stent ([id number]) was prepped and advanced across the Prox RCA. The stent was deployed at 21 LUCERO for 0:10 (min:sec). 10:52:52 Inflation number: 7 The stent balloon was then re-inflated across the Prox RCA to 21 LUCERO for 0:10 (min:sec). 10:53:09 Stent catheter was removed intact over wire. 10:54:28 Place stent Inflation Number: 8 A JOHNIE RX 2.5 x 08 stent ([id number]) was prepped and advanced across the Prox RCA. The stent was deployed at 21 LUCERO for 0:10 (min:sec). 10:55:26 Stent catheter was removed intact over wire. 10:55:27 Wire removed. 10:55:28 Guide catheter removed. 10:55:35 EXOSEAL 6Fr (EX600) opened to sterile field. 10:56:07 Sheath removed intact; hemostasis achieved with Exoseal to the Right Femoral artery. 10:56:09 Procedure ended.(Physican Out) 10:56:21 Fluoroscopy time 06.50 minutes. 10:56:24 Flurop Dose total: 608 10:56:24 Fluoroscopy dose: 608 mGy 10:56:27 Contrast amount:Isovue 300 78ml. 10:56:31 Post-op/insertion site Right Femoral artery dressed using a 4 x 4 and Tegaderm. 10:56:35 Post right femoral artery:stable, soft, clean and dry 10:59:39 Post-procedure physical assessment completed. ASA score P 2 - A patient with mild systemic disease as per Westley Erazo MD. 10:59:44 Post procedure rhythm: unchanged. 10:59:46 Estimated blood loss: 10 ml 10:59:47 Post procedure instruction explained to patient.Patient verbalizes understanding. 10:59:47 Patient needs reinforcement of post procedure teaching. 11:01:15 Procedure and supply charges have been captured, reviewed, submitted and are correct. 11:01:17 Procedure Complication : No complications 11:01:19 Vital chart was stopped 11:01:19 See physician's report for complete and final results. 11:01:21 Report given to Pre/Post Procedure Room. 11:01:23 Patient transfered to Pre/Post Procedure Room with Bed. 11:01:25 Procedure ended. 11:01:25 Full Disclosure recording stopped 11::27 End room use (Document Last) Intervention Summary Intervention Notes Time ActionType Lesion and Equipment Used Action# Pressure Duration Attributes 10:48:08 Inflate Prox RCA EUPHORA 2.5 x 1 13 00:10 balloon 15 Balloon ([id number]) 10:49:08 Reinflate Prox RCA EUPHORA 2.5 x 2 13 00:10 balloon 15 Balloon ([id number]) 10:49:23 Reinflate Prox RCA EUPHORA 2.5 x 3 17 00:10 balloon 15 Balloon ([id number]) 10:50:18 Reinflate Prox RCA EUPHORA 2.5 x 4 19 00:10 balloon 15 Balloon ([id number]) 10:50:40 Reinflate Prox RCA EUPHORA 2.5 x 5 21 00:10 balloon 15 Balloon ([id number]) 10:52:18 Place stent Prox RCA JOHNIE RX 2.5 x 6 21 00:10 18 stent ([id number]) 10:52:52 Reinflate Prox RCA JOHNIE RX 2.5 x 7 21 00:10 stent 18 stent balloon ([id number]) 10:54:28 Place stent Prox RCA JOHNIE RX 2.5 x 8 21 00:10 08 stent ([id number]) Device Usage Item Name Manufacture Quantity Catalog Number Hospital Part Current M inimal Lot# / Charge Number Stock Stock Serial# Code ACIST Syringe Acist 1 37276 827545 786517 164929 2 0 (07115) Medical Systems Inc ACIST Hand Acist 1 67196 387409 943501 882543 5 Control Medical (22551) Systems Inc ACIST Manifold Acist 1 72317 942069 671893 214451 5 (24555) Medical Systems Inc Medline Cath Medline 1 [id number] 873517 48272 691395 5 Pack ([id number]) Bag Decanter Microtek 1 2001S 661780 09027 368894 5 () Medical Inc. DIAGNOSTIC [facility] [place] 1 805602 733750 455798 466398 3 0 WIRE .035 260cm J wire (823205) INFLATOR Merit Merit 1 IP5626 723527 879363 501028 1 5 World of Good (YN1663) SHEATH 6FR Terumo 1 DXV683 461172 652277 813117 4 0 Seco (XQI524) CHOICE PT [place] 1 [id number] 398364 332008 391288 5 Extra Support Scientific 182cm wire ([id number]) GUIDE 6FR AR Medtronic 1 [id number] 909911 46206 240531 1 2.0 SH catheter ([id number]) EUPHORA 2.5 x Medtronic 1 [id number] 310587 892989 739284 5 [id number] 15 Balloon ([id number]) JOHNIE RX 2.5 x Medtronic 1 [id number] 708332 3781217 479375 5 [id number] 18 stent ([id number]) JOHNIE RX 2.5 x Medtronic 1 [id number] 435058 1020666 890415 5 [id number] 08 stent ([id number]) EXOSEAL 6Fr Cardinal 1 EX600 085408 798841 130482 1 0 (EX600) Health Signature Audit [place] Stage Time Signature Unsigned Intra-Procedure 01/27/2018 Susie Ennis 11:02:39 AM RT(R) Signatures Monitor : Susie Ennis Signature : RT Date : Time : [address] [place] [address]
[~2018-01-27 07:38] MED LIST changes: +LANTUS SC; +ZYRTEC10 MG PO
[2018-01-27 08:42] VITALS: BP 163/91; Ht 177.8 cm; Wt 91.8 kg
[2018-01-27 09:01] LABS: ANION GAP 15.1 mmol/L (8-16); CALCIUM 8.5 mg/dL (8.5-10.1); CREATININE - SERUM 1.6 mg/dL (0.6-1.3); POTASSIUM - SERUM 4.1 mmol/L (3.5-5.1)
[2018-01-27 10:02] LABS: BASOPHILS 0.2 % (0-2); EOSINOPHILS 3.4 % (0-7); HEMATOCRIT 36.2 % (42.0-54.0); HEMOGLOBIN 12.2 g/dL (13.5-17.5); IMMATURE GRANULOCYTES 0.4 % (0-5); MCH 31.6 pg (26.0-34.0); MCHC 33.7 g/dL (31.0-37.0); MCV 93.8 fL (80.0-100.0); MEAN PLATELET VOLUME 9.5 fL (7.4-10.4); PLATELET COUNT 242 10x3/uL (130-400); RBC 3.86 10x6/uL (4.20-6.10); RDW 16.2 % (11.5-14.5); WBC 8.1 10x3/uL (4.8-10.8)
== END | disposition home or self-care (01) ==
LOC: D.CATH 07:38
PROVIDERS: Internal Medicine Interventional Cardiology
DX: I25.119 Atherosclerotic heart disease of native coronary artery with unspecified angina pectoris (principal); Z95.1 Presence of aortocoronary bypass graft; Z95.5 Presence of coronary angioplasty implant and graft; I10 Essential (primary) hypertension; E78.5 Hyperlipidemia, unspecified; Z01.812 Encounter for preprocedural laboratory examination

== ENCOUNTER 2018-06-29 13:39 | Observation (INO) | payer MEDICARE ==
[~2018-06-29] VITALS: Ht 177.8 cm; Wt 100.5 kg
--- NOTE | ~2018-06-29 | DS ---
PATIENT:KIRILL CASTANON ORIANA :44 MEDICAL RECORD: [id number] DISCHARGE SUMMARY ADMISSION DATE: 06/29/18 DISCHARGE DATE: 06/30/18 DISCHARGE DIAGNOSES: 1. Congestive heart failure. 2. Chronic systolic dysfunction. 3. Cardiomyopathy. 4. Coronary artery disease. 5. Hypertension. 6. Hyperlipidemia. HISTORY: Mr. aCstanon presents with congestive heart failure symptomatology. Underwent diuresis and dobutamine therapy, had total resolution of symptoms with good diuresis. Discharged home to follow up with [facility] in 1 week. TRANSINT:[id number] Voice Confirmation ID: [id number] DOCUMENT ID: [id number] THERESA CHURCH MD CC: [id number] DICTATION DATE: 06/30/18 0939 SPRINKLER DRIVER: 06/30/18 2306 DIS IN 06/30/[address] [address]
--- NOTE | ~2018-06-29 | EC ---
PATIENT:KIRILL ANDRES DATE OF SERVICE: 06/29/18 SEX: M MEDICAL RECORD: [id number] DATE OF : 44 LOCATION:D.M2 D.211 AGE OF PATIENT: 78 ADMISSION DATE: 06/29/18 REFERRING PHYSICIAN: INTERPRETING PHYSICIAN: THERESA ERAZO MD ECHOCARDIOGRAM REPORT ECHO CHARGES 4 ECHO COMPLETE Date: 06/30/18 CLINICAL DIAGNOSIS: SOB ECHOCARDIOGRAPHIC MEASUREMENTS (adult normal given) AC root (d.<3.7cm) 3.0 cm LV Septum d (<1.2 cm> 1.0 cm Valve Excursion 1.8 cm LV Septum (systole) 1.9 cm Left Atria (s.<4.0cm> 5.7 cm LVPW d(<1.2cm) 1.6 cm RV (d.<2.3cm) 3.4 cm LVPW (sytole) 1.7 cm LV diastole(<5.6CM) 6.2 cm MV E-F(>70mm/sec) cm LV systole 5.1 cm LVOT Diameter 1.7 cm MV exc.(>10mm) cm Est.ejection fraction (50-75%) % DOPPLER: LVIT cm/sec A 36 cm/sec E 105 cm/sec LA cm/sec RVSP 22.7 mmHg LVOT 71 cm/sec AOP1/2T m/s Asc. Ao 113 cm/sec RVOT 54 cm/sec RA cm/sec PA 80 cm/sec AV Gradient Peak 5.1 mmHg AV Mean 2.6 mmHg AV Area 2.0 cm MV Gradient Peak 7.6 mmHg MV Mean 2.6 mmHg MV Area cm COMMENTS: Marketing Communications Manager: Sanket LUEVANO Pecan Gatherer: 1 Dr. Erazo TAPE# PACS Pericardial Effusion N DATE OF SERVICE: 06/30/2018 ECHOCARDIOGRAM DATE OF SERVICE: 06/30/2018 FINDINGS: 1. Left ventricular chamber size is mildly dilated. Left ventricular systolic function is mildly reduced. Overall ejection fraction 45% to 50%. 2. Left atrium, right atrium and right ventricular chamber sizes are mildly ECHOCARDIOGRAM REPORT [id number] KIRILL ANDRES dilated. Left atrium measures 5.7 cm. 3. Valvular structures have normal structure and motion. 4. Doppler interrogation reveals mild mitral regurgitation, mild tricuspid regurgitation, no other valvular insufficiency or stenosis. Pulmonary systolic pressure is estimated at 23 mmHg. 5. No evidence of pericardial effusion or left ventricular thrombus. TRANSINT:[id number] Voice Confirmation ID: [id number] DOCUMENT ID: [id number] THERESA ERAZO MD CC: [id number] DICTATION DATE: 07/01/18845 LATENT FINGERPRINT EXAMINER: 07/01/18 1003 DIS IN 06/30/18 [facility] [address] [id number]
--- NOTE | 2018-06-29 14:15 | NUR ---
RECEIVED PT FROM ADMISSIONS TO ROOM 2113 VIA W/C RESP SOB REFUSES O2 O2 SAT 94% SKIN W/D COLOR WNL AAOX4 RESP UNLABORED TELEMETRY APPLIED CAF RATE 73 WILL CONTINUE TO MONITOR
[2018-06-29] MEDS ORDERED: NEURONTIN 300300 MG PO (14:26)
[2018-06-29] MEDS ORDERED: HYDROCODON-ACE1 EA10 PO (14:27)
[2018-06-29] MEDS ORDERED: FUROSEMIDE40 MG PO (14:28)
[2018-06-29] MEDS ORDERED: BYSTOLIC20 MG (14:29)
[2018-06-29] MEDS ORDERED: TRADJENTA5 MG PO (14:29)
[2018-06-29] MEDS ORDERED: KLOR-CON 1010 MEQ PO (14:36)
[2018-06-29 14:51] VITALS: BP 148/73; BMI 31.7
[2018-06-29 15:26] VITALS: Ht 177.8 cm; Wt 100.5 kg
[2018-06-29 16:25] LABS: ANION GAP 14.8 mmol/L (8-16); CALCIUM 8.3 mg/dL (8.5-10.1); CARBON DIOXIDE 26.4 mmol/L (21.0-32.0); CREATININE - SERUM 2.4 mg/dL (0.6-1.3); POTASSIUM - SERUM 4.2 mmol/L (3.5-5.1)
--- NOTE | 2018-06-29 17:09 | NUR ---
LAB CALLED STAT GLUCOSE 461 DR CHURCH NOTIFIED RECEIVED NEW ORDERS STATED COVER WITH HIGH HUMALOG SLIDING SCALE (28 UNITS) THEN RECHECK AT HS
[2018-06-29 19:52] VITALS: BP 138/60
--- NOTE | 2018-06-29 20:00 | NUR ---
INITIAL ROUNDS ABD ASSESSMENT COMPLETED. PT RESTING IN BED. IV DOBUTAMINE INFUSING @ 5MCG/KG/MIN , ALSO HAS BUMEX DRIP AT 10ML/HR INFUSING. VSS. NO DISTRESS,
[2018-06-29 23:55] VITALS: BP 132/56
[2018-06-30 03:55] VITALS: BP 100/54
--- NOTE | 2018-06-30 04:17 | NUR ---
PT HAS RESTED MOST OF THE NIGHT. NO DISTRESS. CALL LIGHT IN REACH.
[2018-06-30 06:12] LABS: INR 1.81 (0.85-1.17); PROTIME 20.3 SECONDS (11.6-15.0)
[2018-06-30 06:38] LABS: ANION GAP 13.9 mmol/L (8-16); CALCIUM 8.8 mg/dL (8.5-10.1); CARBON DIOXIDE 29.3 mmol/L (21.0-32.0); CREATININE - SERUM 2.4 mg/dL (0.6-1.3)
[2018-06-30 06:40] LABS: POTASSIUM - SERUM 3.2 mmol/L (3.5-5.1)
--- NOTE | 2018-06-30 06:51 | NUR ---
CLARIFIED WITH PHARMACY AND BOTH DOBUTREX AND BUMEX DRIPS ARE OFF NOW PER WRITTEN ORDERS FROM PATIENT'S ADMISSION ORDERS.
--- NOTE | 2018-06-30 07:30 | NUR ---
RECEIVED PT IN BED EYES CLOSED RESP UNLABORED LYING ON LT SIDE NAD NOTED
[2018-06-30 08:37] VITALS: BP 130/73
[2018-06-30] MEDS ORDERED: LANTUS SOL100 UNIT/1 SC (09:11)
--- NOTE | 2018-06-30 11:30 | NUR ---
REVIEWED DISCHARGE INSTRUCTIONS WITH PT STATES UNDERSTANDING COPY GIVEN DCD SALINE LOCKTO RFA WITH IV CATHETER INTACT SITE FREE OF REDNESS OR EDEMA PT DISCHARGED HOME LEFT UNIT VIA W/C IN STABLE CONDITION WITH ALL PERSONAL BELONGINGS
--- NOTE | 2018-06-30 17:16 | MORECARE ---
CASE MANAGEMENT DISCHARGE SUMMARY PATIENT: KIRILL ANDRES ORIANA UNIT: [id number] ADM DATE: 06/29/18 AGE: 78 : 42 SEX: M ROOM/BED: D.2114 AUTHOR: JASPREET MARES PHYSICIAN: REFERRING PHYSICIAN: THERESA CHURCH MD DATE OF SERVICE: 06/30/18 Discharge Plan Patient Name: KIRILL ANDRES [facility] [facility] 1940 Planned Disposition: Home Anticipated Discharge Date: 06/30/18 Discharge Date: 06/30/2018 Expected LOS: 1 Initial Reviewer: [email or web address] Initial Review Date: 06/30/2018 Generated: 06/30/18 6:15 pm Patient Name: KIRILL ANDRES Page [phone] at 1716 All edits/amendments must be made on the electronic document DICTATION DATE: 06/30/181714 ADVERTISING VICE PRESIDENT: [email or web address] 06/30/181714 RPT#: [id number] DC DATE:06/30/18 STATUS: DIS IN [facility] [address] [place] [address] END OF REPORT
== END 2018-06-30 11:30 | disposition home or self-care (01) ==
LOC: D.M2 13:39 → OBSVTIME 13:39 → D.M2 13:39
PROVIDERS: ADMIT Internal Medicine Interventional Cardiology; ATTEND Internal Medicine Interventional Cardiology
DX: I11.0 Hypertensive heart disease with heart failure (principal); I50.22 Chronic systolic (congestive) heart failure; I42.9 Cardiomyopathy, unspecified; E78.5 Hyperlipidemia, unspecified; E11.40 Type 2 diabetes mellitus with diabetic neuropathy, unspecified; I48.0 Paroxysmal atrial fibrillation; Z95.0 Presence of cardiac pacemaker; I25.10 Atherosclerotic heart disease of native coronary artery without angina pectoris